=== PATIENT | male | born 1950 | race American Indian/Alaskan Native ===

== ENCOUNTER 2017-09-18 14:36 | Inpatient (IN) | payer OTHER ==
[2017-09-18] MEDS ORDERED: ATIVAN ONE (15:31)
[2017-09-18 16:03] LABS: Basophils # (Auto) 0.1 K/mm3 (0.0-0.1); Basophils % (Auto) 0.5 % (0.0-1.8); Eosinophils # (Auto) 0.1 K/mm3 (0.0-0.4); Hematocrit 33.9 % (35.5-45.6); Hemoglobin 10.9 gm/dl (11.8-15.2); Lymphocytes # (Auto) 1.3 K/mm3 (1.2-5.4); Lymphocytes % (Auto) 11.7 % (13.4-35.0); Mean Corpuscular HGB Conc 32 % (32-34); Mean Corpuscular Hemoglobin 29 pg (28-32); Mean Corpuscular Volume 91 fl (84-94); Monocytes % (Auto) 8.7 % (0.0-7.3); Platelet Count 459 K/mm3 (140-440); Red Blood Count 3.72 M/mm3 (3.65-5.03); Red Cell Distribution Width 13.3 % (13.2-15.2)
[2017-09-18 16:15] LABS: INR 1.05 (0.87-1.13); Partial Thromboplastin Time 21.2 Sec. (24.2-36.6)
[2017-09-18 16:21] LABS: Albumin 3.3 g/dL (3.9-5); Calcium 9.2 mg/dL (8.4-10.2)
--- NOTE | 2017-09-18 16:26 | Emergency Department Report ---
ED General Adult HPI - General Chief complaint: Seizure Stated complaint: LOW HEART RATE Time Seen by Provider: 09/18/17 15:41 Source: family, EMS Mode of arrival: Stretcher Limitations: Altered Mental Status, Physical Limitation - History of Present Illness Initial comments: 67-year-old male with past medical history of hypertension recent aortic valve replacement postop day #11 came in for bradycardia. Patient had low heart rate of 20s on the scene and patient was paced right away. Patient was brought in for bradycardia. The time of arrival patient was being paced. Patient denies any nausea vomiting chest pain shortness of breath. Patient is hypotensive at the time of arrival. Patient had low blood pressure and a right femoral line was placed right away. Patient was started on dopamine and Levophed. -: Sudden Severity scale (0 -10): 10 - Related Data Previous Rx's Medication Instructions Recorded Last Taken Type Famotidine [Pepcid] 20 mg PO DAILY #30 tablet 09/21/17 Unknown Rx Lisinopril [Zestril TAB] 2.5 mg PO QDAY #30 tablet 09/21/17 Unknown Rx Metoprolol Xl [Metoprolol 25 mg PO QDAY #30 tablet 09/21/17 Unknown Rx SUCCINATE ER TAB] oxyCODONE /ACETAMINOPHEN [Percocet 1 tab PO Q6H PRN #14 tablet 09/21/17 Unknown Rx 5/325 mg] Allergies Allergy/AdvReac Type Severity Reaction Status Date / Time No Known Allergies Allergy Unverified 09/18/17 16:32 ED Review of Systems ROS: Stated complaint: LOW HEART RATE Other details as noted in HPI Comment: Unobtainable due to pts medical conditions ED Past Medical Hx - Medications Home Medications: Home Medications Medication Instructions Recorded Confirmed Last Taken Type Famotidine [Pepcid] 20 mg PO DAILY #30 tablet 09/21/17 Unknown Rx Lisinopril [Zestril TAB] 2.5 mg PO QDAY #30 tablet 09/21/17 Unknown Rx Metoprolol Xl [Metoprolol 25 mg PO QDAY #30 tablet 09/21/17 Unknown Rx SUCCINATE ER TAB] oxyCODONE /ACETAMINOPHEN [Percocet 1 tab PO Q6H PRN #14 tablet 09/21/17 Unknown Rx 5/325 mg] ED Physical Exam - General Limitations: Altered Mental Status, Physical Limitation General appearance: alert - Head Head exam: Present: atraumatic - Eye Eye exam: Present: normal appearance Pupils: Present: normal accommodation - ENT ENT exam: Present: normal exam - Neck Neck exam: Present: normal inspection - Respiratory Respiratory exam: Present: normal lung sounds bilaterally - Cardiovascular Cardiovascular Exam: Present: regular rate - GI/Abdominal GI/Abdominal exam: Present: soft - Extremities Exam Extremities exam: Present: normal inspection - Back Exam Back exam: Present: normal inspection - Neurological Exam Neurological exam: Present: alert ED Course Vital Signs 09/18/17 09/18/17 09/18/17 15:00 15:15 15:30 Temperature 96.7 F L Pulse Rate 29 L Respiratory 20 20 19 Rate Blood Pressure Blood Pressure 90/40 80/45 74/40 [Right] O2 Sat by Pulse 100 100 Oximetry 09/18/17 09/18/17 09/18/17 15:58 16:00 16:15 Temperature Pulse Rate 29 L Respiratory Rate Blood Pressure 100/40 Blood Pressure 100/46 73/40 [Right] O2 Sat by Pulse 100 Oximetry 09/18/17 09/18/17 09/18/17 16:30 16:43 16:45 Temperature Pulse Rate 79 Respiratory 22 Rate Blood Pressure Blood Pressure 56/37 64/40 [Right] O2 Sat by Pulse 100 Oximetry 09/18/17 09/18/17 09/18/17 17:17 17:30 17:45 Temperature Pulse Rate 84 76 Respiratory 22 Rate Blood Pressure Blood Pressure 100/44 98/40 102/38 [Right] O2 Sat by Pulse 100 Oximetry 09/18/17 09/18/17 09/18/17 18:38 18:39 18:45 Temperature Pulse Rate 79 78 Respiratory Rate Blood Pressure Blood Pressure 92/46 106/50 [Right] O2 Sat by Pulse 97 Oximetry 09/18/17 09/18/17 09/18/17 18:50 19:00 19:11 Temperature Pulse Rate 70 70 70 Respiratory 13 15 15 Rate Blood Pressure 166/92 117/84 117/84 Blood Pressure [Right] O2 Sat by Pulse 100 100 100 Oximetry 67-year-old male was brought in for bradycardia. I called the hotel room attendant field contact person right away, patient was given an amp of atropine in the ER and patient was also started on dopamine drip. Dr. Werner is on his way. I discussed his family bedside the patient is very sick. Pt is also started on a levophed drip. I discussed the case with hospitalist and they're okay to admit the patient - Central Line Placement Right Femoral Consent Obtained: emergent situation Time Out Performed: Yes Patient Placed on Monitor/Pulse Ox: Yes Prep: mask, gown, gloves Central Line Prep: Chlorhexidine scrub, sterile drapes applied Local Anesthesia Used: Lidocaine 1% Ultrasound Used for Placement: Yes Central Line Lumen Inserted: triple Bloods Obtained for Lab: Yes Central Line Position: good blood return, all ports aspirated, flus, sutured in place with 2-0 Dressing Applied: Tegaderm Patient Tolerated Procedure: well Complications: none ED Medical Decision Making - Lab Data Result diagrams: 09/19/17 04:50 09/20/17 05:42 - Medical Decision Making 67-year-old male with recent aortic valve replacement came in with a bradycardia of 20s. Patient at the time of arrival was being paced. At time a central line was placed patient was started on pressors. Patient's blood pressure started to come up. Stat cardiology consult was called and the cath team was called and patient was taken for a temporary pacemaker placement. Pt was in a very critical condition. Discussed with family bedside the patient will be admitted to the ICU after THE DRY CHARGE PROCESS ATTENDANT. Critical care time in (mins) excluding proc time.: 45 Critical care attestation.: If time is entered above; I have spent that time in minutes in the direct care of this critically ill patient, excluding procedure time. ED Disposition Clinical Impression: AV block, 3rd degree, Heart block, Hyperkalemia, H/O aortic valve replacement Disposition: OP ADMIT IP TO THIS HOSP Is pt being admited?: Yes Does the pt Need Aspirin: No Condition: Critical
--- NOTE | 2017-09-18 16:31 | XRay Report ---
FINAL REPORT EXAM: XR CHEST 1V AP HISTORY: Chest Pain TECHNIQUE: AP frontal chest x-ray Comparison: None FINDINGS: There has been previous median sternotomy. Heart is enlarged. There is an aortic prosthetic valve. There is pulmonary vascular congestion. A defibrillator pad is present projecting over the right midlung laterally. Lung volumes are low with secondary bronchovascular crowding. There is no pneumothorax. IMPRESSION: Cardiomegaly. Previous median sternotomy. Aortic prosthetic valve. Mild pulmonary vascular congestion. Low volumes with crowding. Recommend larger volume follow-up two view chest when able.
[2017-09-18] MEDS ORDERED: HumuLIN R IV ONE (16:49)
[2017-09-18] MEDS ORDERED: D50W (25GM) Syringe IV ONE (16:50)
[2017-09-18 16:53] LABS: VBG PO2 35.1 (25.0-47.0); VEN PH 7.242 (7.320-7.420)
[2017-09-18] MEDS ORDERED: SODIUM BICARBONATE IV ONE (16:55)
[2017-09-18] MEDS ORDERED: LEVOPHED DRIP 4 MG/NS 250 ML 4 MG/250 ML BAG IV SCH ×2 (17:00)
[2017-09-18] MEDS ORDERED: CALCIUM GLUCONATE 1,000 MG in NACL 0.9% 100 ML IV ONE (17:00)
[2017-09-18] MEDS ORDERED: SODIUM BICARBONATE 150 MEQ in D5W 1,000 ML IV ONE (17:00)
[2017-09-18] MEDS ORDERED: ATIVAN IV ONE (17:00)
[2017-09-18 17:01] LABS: Chol/HDL Ratio 4.03 %
[2017-09-18] MEDS ORDERED: INTROPIN DRIP 800 MG/D5W 250 ML 800 MG/250 ML BAG IV ONE (17:05)
[2017-09-18] MEDS ORDERED: XYLOCAINE 2% INFILTRATI ONE (17:24)
[2017-09-18] MEDS ORDERED: NACL 0.9% 500 ML 500 ML ONE (17:30)
[2017-09-18] MEDS ORDERED: HEPARIN 10,000 UNITS/10 ML ONE (17:30)
[2017-09-18] MEDS ORDERED: ATROPINE 0.1% (CARDIAC) ONE (17:30)
[2017-09-18] MEDS ORDERED: VERSED ONE (17:31)
[2017-09-18] MEDS ORDERED: SUBLIMAZE ONE (17:31)
--- NOTE | 2017-09-18 17:50 | Consultation ---
History of Present Illness Consult date: 09/18/17 Consult reason: bradycardia, syncope History of present illness: The patient states 67-year-old man who was brought to the emergency room following a syncopal episode at home. He was found with severe bradycardia and was placed on an external pacemaker. On presentation to the emergency room, he was also severely hypotensive, and bradycardia hypotension persisted despite atropine. Intravenous dopamine was started and cardiac consultation was requested for emergency temporary transvenous pacemaker. Stat laboratory values revealed a potassium of 6.1 and a creatinine of 3.2. Medications on presentation included amiodarone and carvedilol. The patient's recent cardiac history, is notable for aortic valve replacement with a bioprosthetic valve just 3 weeks ago at [facility]. He denies a history of coronary artery disease and states that there was no coronary artery bypass. The indication for his valve replacement is uncertain, he reports that he was getting tired but uncertain if he was a valvular stenosis or regurgitation. We also have no information on his presurgical left ventricular ejection fraction. The patient was taken emergently to the cardiac catheterization laboratory, where we successfully placed a temporary transvenous pacemaker via the left femoral vein. He is admitted to the CCU for further supportive care. Past History Past Surgical History: valve replacement Medications and Allergies Allergies Allergy/AdvReac Type Severity Reaction Status Date / Time No Known Allergies Allergy Unverified 09/18/17 16:32 Active Meds: Active Medications Norepinephrine (Levophed Drip 4 Mg/Ns 250 Ml) 4 mg in 250 mls @ 7.5 mls/hr IV TITR EDA; Protocol Sodium Bicarbonate 150 meq/ (Dextrose) 1,150 mls @ 42 mls/hr IV ONCE.ED ONE Stop: 09/19/17 20:22 Dopamine HCl/Dextrose (Intropin Drip 800 Mg/D5w 250 Ml) 800 mg in 250 mls @ 9.355 mls/hr IV TITR ONE; Protocol Stop: 09/19/17 19:48 Review of Systems ROS unobtainable: due to mental status Physical Examination Vital Signs Pulse BP Pulse Ox 29 L 100/40 100 09/18/17 15:58 09/18/17 15:58 09/18/17 15:58 General appearance: severe distress HEENT: Positive: PERRL Neck: Positive: neck supple Cardiac: Positive: Irregularly Regular Lungs: Positive: Decreased Breath Sounds Neuro: Positive: Grossly Intact Abdomen: Positive: Soft Male genitourinary: Positive: deferred Skin: Positive: Clear Extremities: Absent: edema Results 09/18/17 16:00 09/18/17 16:00 Cardiac Enzymes 09/18/17 Range/Units 16:00 AST 13 (5-40) units/L Coagulation 09/18/17 Range/Units 16:00 PT 14.2 (12.2-14.9) Sec. INR 1.05 (0.87-1.13) APTT 21.2 L (24.2-36.6) Sec. Lipids 09/18/17 Range/Units 16:00 Triglycerides 130 (2-149) mg/dL Cholesterol 105 (50-199) mg/dL HDL Cholesterol 26 L (40-59) mg/dL Cholesterol/HDL Ratio 4.03 % CBC 09/18/17 Range/Units 16:00 WBC 11.2 H (4.5-11.0) K/mm3 RBC 3.72 (3.65-5.03) M/mm3 Hgb 10.9 L (11.8-15.2) gm/dl Hct 33.9 L (35.5-45.6) % Plt Count 459 H (140-440) K/mm3 Lymph # 1.3 (1.2-5.4) K/mm3 [place] # 1.0 H (0.0-0.8) K/mm3 Eos # 0.1 (0.0-0.4) K/mm3 Baso # 0.1 (0.0-0.1) K/mm3 Comprehensive Metabolic Panel 09/18/17 Range/Units 16:00 Sodium 133 L (137-145) mmol/L Potassium 6.1 H* (3.6-5.0) mmol/L Chloride 99.6 (98-107) mmol/L Carbon Dioxide 20 L (22-30) mmol/L BUN 47 H (9-20) mg/dL Creatinine 3.2 H (0.8-1.5) mg/dL Glucose 155 H (75-100) mg/dL Calcium 9.2 (8.4-10.2) mg/dL AST 13 (5-40) units/L ALT 21 (7-56) units/L Alkaline Phosphatase 70 (35-129) units/L Total Protein 6.9 (6.3-8.2) g/dL Albumin 3.3 L (3.9-5) g/dL EKG interpretations - Telemetry EKG Rhythm: 3rd Degree HB Assessment and Plan - Patient Problems (1) Heart block Current Visit: Yes Status: Acute Plan to address problem: Patient presented with syncope and complete heart block. It is notable that position of external pacemaker, there was complete asystole, with P waves and no QRS complexes. The patient is status post successful placement of a temporary transvenous pacemaker. The etiology of the heart block is uncertain at this time, possible etiologies include hyperkalemia versus iatrogenic damage to the His bundle during his recent valvular surgery. After correction of his hyperkalemia, if heart block persists he will likely need a permanent pacemaker implant. (2) Hyperkalemia Current Visit: Yes Status: Acute Plan to address problem: Hyperkalemia associated with renal failure, we will defer to nephrology and internal medicine for management of renal failure and correction of hyperkalemia. (3) H/O aortic valve replacement Current Visit: Yes Status: Acute Plan to address problem: We will get records from the [facility], regarding the indication for valvular replacement, his preoperative left ventricular function assessment. Further cardiac management will depend on clinical course. An echocardiogram will be done for left ventricular function reassessment.
[2017-09-18] MEDS ORDERED: HEPARIN/NS 5000 UNIT/500ML(CATH LAB) 500 ML IR ONE (17:57)
[2017-09-18] MEDS ORDERED: REGLAN IV PRN (18:26)
[2017-09-18] MEDS ORDERED: SODIUM CHLORIDE FLUSH SYRINGE 10 ML IV PRN ×2 (18:26)
[2017-09-18] MEDS ORDERED: DILAUDID IV PRN ×2 (18:26)
[2017-09-18] MEDS ORDERED: TYLENOL PO PRN (18:26)
[2017-09-18] MEDS ORDERED: ZOFRAN IV PRN (18:26)
[2017-09-18] MEDS ORDERED: MORPHINE IV PRN (18:26)
[2017-09-18] MEDS ORDERED: PERCOCET 5/325 PO PRN (18:26)
--- NOTE | 2017-09-18 18:26 | History and Physical Report ---
History of Present Illness Date of examination: 09/18/17 Date of admission: 09/18/17 16:27 Chief complaint: Chief complaint: The patient has passed out at home after feeling very weak. History of present illness: History of present illness: : 67-year-old AA male felt very weak and passed out at home. When the EMS arrived they found the patient to be in a heart rate of 20/m. Patient was placed on temporary transvenous pacemaker. After wearing the external pacemaker HR went upto 80. No chest pain no palpitations or diaphoresis. Patient recently had a Aortic valve replacement about 3 weeks ago at [facility]. Patient was also hypotensive. No history of coronary artery disease. No diaphoresis. Patient is a high potassium of 6.1 and creatinine of 3.2. Baseline mammogram potassium and creatinine not known. Past History Past Surgical History: valve replacement Surgical history Aortic valve replacement Family history htn Social History Smoking status not known Medications and Allergies Allergies Allergy/AdvReac Type Severity Reaction Status Date / Time No Known Allergies Allergy Unverified 09/18/17 16:32 Active Meds: Active Medications Norepinephrine (Levophed Drip 4 Mg/Ns 250 Ml) 4 mg in 250 mls @ 7.5 mls/hr IV TITR EDA; Protocol Sodium Bicarbonate 150 meq/ (Dextrose) 1,150 mls @ 42 mls/hr IV ONCE.ED ONE Stop: 09/19/17 20:22 Dopamine HCl/Dextrose (Intropin Drip 800 Mg/D5w 250 Ml) 800 mg in 250 mls @ 9.355 mls/hr IV TITR ONE; Protocol Stop: 09/19/17 19:48 Review of Systems All systems: negative Constitutional: no weight loss, no weight gain, no fever, no chills, no sweats, no night sweats Ears, nose, mouth and throat: no dysphagia, no hoarseness, no sore throat, no swelling in mouth, no swelling in throat, no odynophagia Cardiovascular: chest pain, syncope, shortness of breath Respiratory: no cough, no cough with sputum, no excessive sputum, no hemoptysis , no shortness of breath, no dyspnea on exertion Gastrointestinal: no abdominal pain, no nausea, no vomiting, no diarrhea, no constipation, no change in bowel habits, no hematemesis, no coffee ground emesis Genitourinary Male: no dysuria, no hematuria, no flank pain, no discharge, no urinary frequency, no urinary hesitancy, no nocturia, no incontinence, no erectile dysfunction, no genital pain Rectal: no pain Musculoskeletal: no neck stiffness, no neck pain, no shooting arm pain, no arm numbness/tingling, no low back pain, no shooting leg pain, no leg numbness/ tingling, no redness of joints Integumentary: no rash, no pruritis, no redness, no sores Neurological: syncope, no head injury, no transient paralysis, no paralysis, no weakness, no parathesias, no numbness, no tingling, no seizures Psychiatric: no anxiety, no memory loss, no change in sleep habits, no sleep disturbances, no insomnia, no hypersomnia, no change in appetite, no change in libido, no suicidal ideation, no disorientation, no hallucinations Endocrine: no cold intolerance, no heat intolerance, no polyphagia, no excessive thirst, no polydipsia, no polyuria, no nocturia, no excessive sweating , no flushing, no weight change Hematologic/Lymphatic: no easy bruising, no easy bleeding Allergic/Immunologic: no urticaria, no allergic rhinitis, no wheezing Exam - Constitutional Vitals: Temp Pulse Resp BP Pulse Ox 29 L 22 100/40 100 09/18/17 15:58 09/18/17 16:43 09/18/17 15:58 09/18/17 16:43 General appearance: Present: no acute distress, well-nourished - EENT Eyes: Present: PERRL ENT: hearing intact, clear oral mucosa - Neck Neck: Present: supple, normal ROM - Respiratory Respiratory effort: normal Respiratory: bilateral: CTA - Cardiovascular Heart rate: 78 Rhythm: regular Heart Sounds: Present: S1 & S2. Absent: rub, click - Extremities Extremities: no ischemia, pulses intact, pulses symmetrical, No edema Peripheral Pulses: within normal limits - Abdominal General gastrointestinal: Present: soft, non-tender, non-distended, normal bowel sounds Male genitourinary: Present: normal - Rectal Rectal Exam: deferred - Integumentary Integumentary: Present: clear, warm, dry - Musculoskeletal Musculoskeletal: gait normal, strength equal bilaterally - Psychiatric Psychiatric: appropriate mood/affect, intact judgment & insight - Neurologic Neurologic: CNII-XII intact, moves all extremities - Allied Health Allied health notes reviewed: nursing, case management Results - Labs CBC & Chem 7: 09/18/17 16:00 09/18/17 16:00 Labs: Laboratory Last Values WBC 11.2 K/mm3 (4.5-11.0) H 09/18/17 16:00 RBC 3.72 M/mm3 (3.65-5.03) 09/18/17 16:00 Hgb 10.9 gm/dl (11.8-15.2) L 09/18/17 16:00 Hct 33.9 % (35.5-45.6) L 09/18/17 16:00 MCV 91 fl (84-94) 09/18/17 16:00 MCH 29 pg (28-32) 09/18/17 16:00 MCHC 32 % (32-34) 09/18/17 16:00 RDW 13.3 % (13.2-15.2) 09/18/17 16:00 Plt Count 459 K/mm3 (140-440) H 09/18/17 16:00 Lymph % (Auto) 11.7 % (13.4-35.0) L 09/18/17 16:00 Bartholomew % (Auto) 8.7 % (0.0-7.3) H 09/18/17 16:00 Eos % (Auto) 1.0 % (0.0-4.3) 09/18/17 16:00 Baso % (Auto) 0.5 % (0.0-1.8) 09/18/17 16:00 Lymph # 1.3 K/mm3 (1.2-5.4) 09/18/17 16:00 Bartholomew # 1.0 K/mm3 (0.0-0.8) H 09/18/17 16:00 Eos # 0.1 K/mm3 (0.0-0.4) 09/18/17 16:00 Baso # 0.1 K/mm3 (0.0-0.1) 09/18/17 16:00 Seg Neutrophils % 78.1 % (40.0-70.0) H 09/18/17 16:00 Seg Neutrophils # 8.7 K/mm3 (1.8-7.7) H 09/18/17 16:00 PT 14.2 Sec. (12.2-14.9) 09/18/17 16:00 INR 1.05 (0.87-1.13) 09/18/17 16:00 APTT 21.2 Sec. (24.2-36.6) L 09/18/17 16:00 POC ABG pH 7.335 (7.35-7.45) L 09/18/17 16:53 POC ABG pCO2 34.5 (35-45) L 09/18/17 16:53 POC ABG pO2 294 (80-105) H 09/18/17 16:53 POC ABG HCO3 18.4 09/18/17 16:53 POC ABG Total CO2 19 09/18/17 16:53 POC ABG O2 Sat 100 09/18/17 16:53 POC ABG Base Excess -7 09/18/17 16:53 VBG pH 7.242 (7.320-7.420) L 09/18/17 Unknown VBG pO2 35.1 (25.0-47.0) 09/18/17 Unknown FiO2 100 % 09/18/17 16:53 Sodium 133 mmol/L (137-145) L 09/18/17 16:00 Potassium 6.1 mmol/L (3.6-5.0) H* 09/18/17 16:00 Chloride 99.6 mmol/L (98-107) 09/18/17 16:00 Carbon Dioxide 20 mmol/L (22-30) L 09/18/17 16:00 Anion Gap 20 mmol/L 09/18/17 16:00 BUN 47 mg/dL (9-20) H 09/18/17 16:00 Creatinine 3.2 mg/dL (0.8-1.5) H 09/18/17 16:00 Estimated GFR 24 ml/min 09/18/17 16:00 BUN/Creatinine Ratio 15 % 09/18/17 16:00 Glucose 155 mg/dL (75-100) H 09/18/17 16:00 Lactic Acid 1.40 mmol/L (0.7-2.0) 09/18/17 17:12 Calcium 9.2 mg/dL (8.4-10.2) 09/18/17 16:00 Total Bilirubin 0.50 mg/dL (0.1-1.2) 09/18/17 16:00 AST 13 units/L (5-40) 09/18/17 16:00 ALT 21 units/L (7-56) 09/18/17 16:00 Alkaline Phosphatase 70 units/L (35-129) 09/18/17 16:00 Troponin T 0.104 ng/mL (0.00-0.029) H* 09/18/17 16:00 Total Protein 6.9 g/dL (6.3-8.2) 09/18/17 16:00 Albumin 3.3 g/dL (3.9-5) L 09/18/17 16:00 Albumin/Globulin Ratio 0.9 % 09/18/17 16:00 Triglycerides 130 mg/dL (2-149) 09/18/17 16:00 Cholesterol 105 mg/dL (50-199) 09/18/17 16:00 LDL Cholesterol Direct 60 mg/dL (50-130) 09/18/17 16:00 HDL Cholesterol 26 mg/dL (40-59) L 09/18/17 16:00 Cholesterol/HDL Ratio 4.03 % 09/18/17 16:00 - Imaging and Cardiology EKG: report reviewed (initial EKG complete heart block with heart rate of 20/m) Assessment and Plan Assessment and plan: The high probability of a clinically significant, sudden or life threatening deterioration of the [Pulmonary, cadiac, renal] system(s) required my full and direct attention, intervention and personal management. The aggregate critical care time was [40] minutes. This time is in addition to time spent performing reported procedures but includes the following: [x] Data Review and interpretation [x] Patient assessment and monitoring of vital signs [x] Documentation [x] Medication orders and management Advance Directives: Yes (full code) VTE prophylaxis?: Chemical Plan of care discussed with patient/family: Yes (") - Patient Problems (1) Hypotension Current Visit: Yes Status: Acute Qualifiers: Hypotension type: unspecified hypotension type Qualified Code(s): I95.9 - Hypotension, unspecified Plan to address problem: IV Levophed titrated to keep the systolic blood pressure above 100 mm Hg (2) Complete heart block Current Visit: Yes Status: Acute Plan to address problem: Patient is on transcutaneous pacemaker. Heart rate went up to 78. Patient being taken to the Strategic Development Manager for cardiac cath and possible pacemaker insertion. EPS consult requested (3) Hyperkalemia Current Visit: Yes Status: Acute Plan to address problem: Patient given anti-hyper kalemia protocol Recheck BMP (4) Acute kidney injury Current Visit: Yes Status: Acute Plan to address problem: Patient's baseline creatinine not known. IV fluids for now. Dr. Sage baseball club manager consulted (5) H/O aortic valve replacement Current Visit: Yes Status: Chronic Plan to address problem: Had aortic valve replacement 3 weeks ago Echocardiogram ordered Cardiology consult ordered (6) DVT prophylaxis Current Visit: Yes Status: Acute Plan to address problem: Patient on Lovenox 40 mg subcutaneous daily GI prophylaxis with famotidine
[2017-09-18 18:35] LABS: Bacteria,Urine 1+ /HPF (Negative); Bilirubin,Urine NEG (Negative); Blood,Urine SM (Negative); Color,Urine Yellow (Yellow); Granular Casts,Urine 6 /LPF; Hyaline Casts,Urine 6 /LPF; Urobilinogen,Urine < 2.0 mg/dL (<2.0)
[2017-09-18] MEDS ORDERED: D5NS 1,000 ML IV SCH (19:00)
[2017-09-18 20:25] LABS: Calcium 8.8 mg/dL (8.4-10.2)
[2017-09-18] MEDS: PEPCID IV SCH (21:38)
[2017-09-18] MEDS ORDERED: SODIUM CHLORIDE FLUSH SYRINGE 10 ML IV SCH (22:00)
[2017-09-18] MEDS ORDERED: PEPCID IV SCH (22:00)
--- NOTE | 2017-09-18 22:32 | Event Note ---
Discussed with emergency room physician. Patient admitted with bradycardia, hyperkalemia, for which she has already received treatment. At this time would like to review the results of follow-up, metabolic profile and potassium level to make further recommendation. I suspect underlying cardiac conduction defect , cardiology already following Case was discussed at length with JENNY Santamaria
--- NOTE | 2017-09-18 22:32 | Consultation ---
Past History Past Surgical History: valve replacement Medications and Allergies Allergies Allergy/AdvReac Type Severity Reaction Status Date / Time No Known Allergies Allergy Unverified 09/18/17 16:32 Active Meds: Active Medications Acetaminophen (Tylenol) 650 mg PO Q4H PRN PRN Reason: Pain MILD(1-3)/Fever >100.5/GUERRA Famotidine (Pepcid) 20 mg IV QDAY EDA Last Admin: 09/18/17 21:38 Dose: 20 mg Hydromorphone HCl (Dilaudid) 1 mg IV Q3H PRN PRN Reason: Pain , Severe (7-10) Sodium Bicarbonate 150 meq/ (Dextrose) 1,150 mls @ 42 mls/hr IV ONCE.ED ONE Stop: 09/19/17 20:22 Last Admin: 09/18/17 17:20 Dose: 42 mls/hr Dextrose/Sodium Chloride (D5ns) 1,000 mls @ 100 mls/hr IV DIRECT EDA Metoclopramide HCl (Reglan) 10 mg IV Q6H PRN PRN Reason: Nausea And Vomiting Morphine Sulfate (Morphine) 2 mg IV Q4H PRN PRN Reason: Pain, Moderate (4-6) Ondansetron HCl (Zofran) 4 mg IV Q8H PRN PRN Reason: Nausea And Vomiting Oxycodone/Acetaminophen (Percocet 5/325) 1 tab PO Q6H PRN PRN Reason: Pain, Moderate (4-6) Sodium Chloride (Sodium Chloride Flush Syringe 10 Ml) 10 ml IV BID EDA Sodium Chloride (Sodium Chloride Flush Syringe 10 Ml) 10 ml IV PRN PRN PRN Reason: LINE FLUSH Zolpidem Tartrate (Ambien) 5 mg PO QHS PRN PRN Reason: Insomnia Exam - Vital Signs Vital signs: Vital Signs Temp Pulse Resp BP Pulse Ox 96.7 F L 29 L 20 90/40 100 09/18/17 15:00 09/18/17 15:00 09/18/17 15:00 09/18/17 15:00 09/18/17 15:00 Results - Lab Results 09/18/17 16:00 09/18/17 19:50 Most recent lab results Calcium 8.8 mg/dL (8.4-10.2) 09/18/17 19:50
[2017-09-18 23:39] LABS: Bacteria,Urine 1+ /HPF (Negative); Bilirubin,Urine NEG (Negative); Blood,Urine SM (Negative); Color,Urine Yellow (Yellow); Mucus,Urine FEW /HPF; Protein,Urine <15 mg/dL mg/dL (Negative); RBC,Urine < 1.0 /HPF (0.0-6.0); Urobilinogen,Urine < 2.0 mg/dL (<2.0)
[2017-09-18 23:41] LABS: Creatinine,Urine 79.9 mg/dL (0.1-20.0)
[2017-09-19 05:02] LABS: Basophils # (Auto) 0.1 K/mm3 (0.0-0.1); Basophils % (Auto) 0.5 % (0.0-1.8); Eosinophils # (Auto) 0.1 K/mm3 (0.0-0.4); Eosinophils % (Auto) 0.4 % (0.0-4.3); Hematocrit 31.2 % (35.5-45.6); Hemoglobin 10.6 gm/dl (11.8-15.2); Lymphocytes # (Auto) 1.6 K/mm3 (1.2-5.4); Mean Corpuscular HGB Conc 34 % (32-34); Mean Corpuscular Hemoglobin 30 pg (28-32); Mean Corpuscular Volume 88 fl (84-94); Monocytes # (Auto) 1.5 K/mm3 (0.0-0.8); Monocytes % (Auto) 11.1 % (0.0-7.3); Red Blood Count 3.56 M/mm3 (3.65-5.03); Red Cell Distribution Width 13.1 % (13.2-15.2)
[2017-09-19 05:03] LABS: Platelet Count 422 K/mm3 (140-440)
[2017-09-19 05:20] LABS: Albumin 3.2 g/dL (3.9-5); Calcium 8.9 mg/dL (8.4-10.2)
[2017-09-19] MEDS: PEPCID IV SCH (08:59)
[2017-09-19] MEDS: SODIUM CHLORIDE FLUSH SYRINGE 10 ML IV SCH ×3 (08:59→23:36)
--- NOTE | 2017-09-19 09:33 | Consultation ---
History of Present Illness - History of Present Illness Chronic kidney disease: Patient has been followed by [facility] has been told to have stage III Hyperkalemia, mild, treated medically. Currently responded well. No indication for renal replacement therapy. Continue to maintain IV fluid for now. Monitor potassium level Mild anemia, possibly due to chronic kidney disease. Current hemoglobin around 10.6 Mild leukocytosis: Likely stress response to follow Hyponatremia, multifactorial,? Underlying type IV renal tubular acidosis, which could have caused metabolic acidosis as well as hyperkalemia, patient will be treated with bicarbonate for now an outpatient. Low potassium diet Transjugular potassium gradient is to be checked Urinalysis shows evidence of glycosuria, protein creatinine ratio 15/80 Renal prognosis guarded, Past History Past Surgical History: valve replacement Medications and Allergies Allergies Allergy/AdvReac Type Severity Reaction Status Date / Time No Known Allergies Allergy Unverified 09/18/17 16:32 Active Meds: Active Medications Acetaminophen (Tylenol) 650 mg PO Q4H PRN PRN Reason: Pain MILD(1-3)/Fever >100.5/GUERRA Famotidine (Pepcid) 20 mg IV QDAY [facility] Last Admin: 09/19/17 08:59 Dose: 20 mg Hydromorphone HCl (Dilaudid) 1 mg IV Q3H PRN PRN Reason: Pain , Severe (7-10) Last Admin: 09/19/17 05:00 Dose: 1 mg Sodium Bicarbonate 150 meq/ (Dextrose) 1,150 mls @ 42 mls/hr IV ONCE.ED ONE Stop: 09/19/17 20:22 Last Admin: 09/18/17 17:20 Dose: 42 mls/hr Dextrose/Sodium Chloride (D5ns) 1,000 mls @ 100 mls/hr IV DIRECT [facility] Metoclopramide HCl (Reglan) 10 mg IV Q6H PRN PRN Reason: Nausea And Vomiting Morphine Sulfate (Morphine) 2 mg IV Q4H PRN PRN Reason: Pain, Moderate (4-6) Ondansetron HCl (Zofran) 4 mg IV Q8H PRN PRN Reason: Nausea And Vomiting Oxycodone/Acetaminophen (Percocet 5/325) 1 tab PO Q6H PRN PRN Reason: Pain, Moderate (4-6) Sodium Chloride (Sodium Chloride Flush Syringe 10 Ml) 10 ml IV BID [facility] Last Admin: 09/19/17 08:59 Dose: 10 ml Sodium Chloride (Sodium Chloride Flush Syringe 10 Ml) 10 ml IV PRN PRN PRN Reason: LINE FLUSH Zolpidem Tartrate (Ambien) 5 mg PO QHS PRN PRN Reason: Insomnia Exam - Vital Signs Vital signs: Vital Signs Temp Pulse Resp BP Pulse Ox 96.7 F L 29 L 20 90/40 100 09/18/17 15:00 09/18/17 15:00 09/18/17 15:00 09/18/17 15:00 09/18/17 15:00 Results - Lab Results 09/19/17 04:50 09/19/17 04:50 Most recent lab results Calcium 8.9 mg/dL (8.4-10.2) 09/19/17 04:50 Urine Creatinine 79.9 mg/dL (0.1-20.0) H 09/18/17 Unknown Urine Total Protein 15 mg/dL (5-11.8) H 09/18/17 Unknown
--- NOTE | 2017-09-19 09:48 | Cat Scan Report ---
CT HEAD WITHOUT CONTRAST: HISTORY: Seizure. TECHNIQUE: Sequential 2.5mm CT images. COMPARISON: none. FINDINGS: Cerebral Parenchyma: Within normal limits. Cerebellum: Within normal limits. Brainstem: Within normal limits. Ventricles: Normal. Sella: Normal. Extra-axial spaces: Normal. Basal Cisterns: Normal. Intracranial Hemorrhage: None. Midline Shift: None. Calvarium: Normal. Sinuses: Normal. Mastoid Air Cells: Normal. Visualized Orbits: Normal. IMPRESSION: Cranial CT scan within normal limits.
--- NOTE | 2017-09-19 11:26 | Consultation ---
History of Present Illness Consult date: 09/19/17 Requesting physician: PAULETTE GARIBAY Reason for consult: other (syncope) History of present illness: 67 yo s/p recent AVR ~ 2-3 weeks ago, was doing well post-op until prior to this presentation when he had a syncopal episode. Noted to be in CHB and trans- venous pacer inserted. Denies SOB, wheezing, cough, sputum, fevers, chills, chest pain. Currently on RA. Active Medications Acetaminophen (Tylenol) 650 mg PO Q4H PRN PRN Reason: Pain MILD(1-3)/Fever >100.5/GUERRA Famotidine (Pepcid) 20 mg IV QDAY [facility] Last Admin: 09/19/17 08:59 Dose: 20 mg Heparin Sodium (Porcine) (Heparin) 5,000 unit SUB-Q Q8HR EDA Hydromorphone HCl (Dilaudid) 1 mg IV Q3H PRN PRN Reason: Pain , Severe (7-10) Last Admin: 09/19/17 05:00 Dose: 1 mg Dextrose/Sodium Chloride (D5ns) 1,000 mls @ 100 mls/hr IV DIRECT EDA Metoclopramide HCl (Reglan) 10 mg IV Q6H PRN PRN Reason: Nausea And Vomiting Morphine Sulfate (Morphine) 2 mg IV Q4H PRN PRN Reason: Pain, Moderate (4-6) Ondansetron HCl (Zofran) 4 mg IV Q8H PRN PRN Reason: Nausea And Vomiting Oxycodone/Acetaminophen (Percocet 5/325) 1 tab PO Q6H PRN PRN Reason: Pain, Moderate (4-6) Sodium Chloride (Sodium Chloride Flush Syringe 10 Ml) 10 ml IV BID [facility] Last Admin: 09/19/17 08:59 Dose: 10 ml Sodium Chloride (Sodium Chloride Flush Syringe 10 Ml) 10 ml IV PRN PRN PRN Reason: LINE FLUSH Zolpidem Tartrate (Ambien) 5 mg PO QHS PRN PRN Reason: Insomnia Past History Past Medical History: other (Aortic regurgm, CMP) Past Surgical History: valve replacement Social history: alcohol abuse (~ 2 shots of liquor daily), full code. denies: smoking, prescription drug abuse, IV drug use Family history: other (No pulm issues reported) Medications and Allergies Allergies Allergy/AdvReac Type Severity Reaction Status Date / Time No Known Allergies Allergy Unverified 09/18/17 16:32 Active Meds: Active Medications Acetaminophen (Tylenol) 650 mg PO Q4H PRN PRN Reason: Pain MILD(1-3)/Fever >100.5/GUERRA Famotidine (Pepcid) 20 mg IV QDAY [facility] Last Admin: 09/19/17 08:59 Dose: 20 mg Heparin Sodium (Porcine) (Heparin) 5,000 unit SUB-Q Q8HR [facility] Hydromorphone HCl (Dilaudid) 1 mg IV Q3H PRN PRN Reason: Pain , Severe (7-10) Last Admin: 09/19/17 05:00 Dose: 1 mg Dextrose/Sodium Chloride (D5ns) 1,000 mls @ 100 mls/hr IV DIRECT EDA Metoclopramide HCl (Reglan) 10 mg IV Q6H PRN PRN Reason: Nausea And Vomiting Morphine Sulfate (Morphine) 2 mg IV Q4H PRN PRN Reason: Pain, Moderate (4-6) Ondansetron HCl (Zofran) 4 mg IV Q8H PRN PRN Reason: Nausea And Vomiting Oxycodone/Acetaminophen (Percocet 5/325) 1 tab PO Q6H PRN PRN Reason: Pain, Moderate (4-6) Sodium Chloride (Sodium Chloride Flush Syringe 10 Ml) 10 ml IV BID [facility] Last Admin: 09/19/17 08:59 Dose: 10 ml Sodium Chloride (Sodium Chloride Flush Syringe 10 Ml) 10 ml IV PRN PRN PRN Reason: LINE FLUSH Zolpidem Tartrate (Ambien) 5 mg PO QHS PRN PRN Reason: Insomnia Review of Systems All systems: negative Physical Examination Vital signs: Vital Signs Temp Pulse Resp BP Pulse Ox 96.7 F L 29 L 20 90/40 100 09/18/17 15:00 09/18/17 15:00 09/18/17 15:00 09/18/17 15:00 09/18/17 15:00 General appearance: no acute distress, alert, other (obese) Eyes: non-icteric ENT: oropharynx moist Neck: supple Effort: normal Ascultation: Bilateral: clear Cardiovascular: regular rate and rhythm (no mrg) Gastrointestinal: normoactive bowel sounds, soft, non-tender, non-distended Integumentary: normal Extremities: no cyanosis, no edema, pink and warm normal mental status, non-focal exam, pupils equal and round mood appropriate, affect normal Results - Laboratory Findings CBC and BMP: 09/19/17 04:50 09/19/17 04:50 ABG POC ABG pH 7.335 (7.35-7.45) L 09/18/17 16:53 POC ABG pCO2 34.5 (35-45) L 09/18/17 16:53 POC ABG pO2 294 (80-105) H 09/18/17 16:53 POC ABG HCO3 18.4 09/18/17 16:53 POC ABG Total CO2 19 09/18/17 16:53 POC ABG O2 Sat 100 09/18/17 16:53 PT/INR, D-dimer PT 14.2 Sec. (12.2-14.9) 09/18/17 16:00 INR 1.05 (0.87-1.13) 09/18/17 16:00 Abnormal lab findings: Abnormal Labs 09/18/17 09/18/17 09/18/17 16:00 16:00 16:00 WBC 11.2 H RBC Hgb 10.9 L Hct 33.9 L RDW Plt Count 459 H Lymph % (Auto) 11.7 L [place] % (Auto) 8.7 H [place] # 1.0 H Seg Neutrophils % 78.1 H Seg Neutrophils # 8.7 H APTT 21.2 L POC ABG pH POC ABG pCO2 POC ABG pO2 VBG pH Sodium 133 L Potassium 6.1 H* Chloride Carbon Dioxide 20 L BUN 47 H Creatinine 3.2 H Glucose 155 H Lactic Acid Troponin T 0.104 H* Albumin 3.3 L HDL Cholesterol 26 L Urine Creatinine Urine Total Protein 09/18/17 09/18/17 09/18/17 16:00 16:53 19:50 WBC RBC Hgb Hct RDW Plt Count Lymph % (Auto) [place] % (Auto) [place] # Seg Neutrophils % Seg Neutrophils # APTT POC ABG pH 7.335 L POC ABG pCO2 34.5 L POC ABG pO2 294 H VBG pH Sodium 129 L Potassium Chloride 97.1 L Carbon Dioxide 20 L BUN 46 H Creatinine 2.8 H Glucose 193 H Lactic Acid 2.40 H* Troponin T Albumin HDL Cholesterol Urine Creatinine Urine Total Protein 09/18/17 09/18/17 09/18/17 19:54 Unknown Unknown WBC RBC Hgb Hct RDW Plt Count Lymph % (Auto) [place] % (Auto) [place] # Seg Neutrophils % Seg Neutrophils # APTT POC ABG pH POC ABG pCO2 POC ABG pO2 VBG pH 7.242 L Sodium Potassium Chloride Carbon Dioxide BUN Creatinine Glucose Lactic Acid Troponin T 0.101 H* Albumin HDL Cholesterol Urine Creatinine 79.9 H Urine Total Protein 15 H 09/19/17 09/19/17 09/19/17 04:50 04:50 04:50 WBC 13.6 H RBC 3.56 L Hgb 10.6 L Hct 31.2 L RDW 13.1 L Plt Count Lymph % (Auto) 12.0 L [place] % (Auto) 11.1 H [place] # 1.5 H Seg Neutrophils % 76.0 H Seg Neutrophils # 10.3 H APTT POC ABG pH POC ABG pCO2 POC ABG pO2 VBG pH Sodium 131 L Potassium Chloride 97.0 L Carbon Dioxide BUN 40 H Creatinine 2.0 H Glucose 118 H Lactic Acid Troponin T 0.076 H D Albumin 3.2 L HDL Cholesterol Urine Creatinine Urine Total Protein - Diagnostic Findings Chest x-ray: report reviewed, image reviewed Assessment and Plan Imp: 1. Syncope 2. Complete heart block 3. AR s/p recent open AVR with pericardial tissue valve 4. IFTIKHAR on CKD, baseline of 1.3 in [place] system 5. Dilated CMP, worse; intra-op GORDO showed LVEF of 45-50% 08/2017 Rec: 1. On Dopamine 1mcg; wean to keep MAP > 65; plan PPM in AM 2. Note drop in LVEF per above; f/u with cards recs 3. Add DVT PPx 4. Stable pulm-haynes on RA; will monitor w/ you Plan of care reviewed w/ patient, he understands/agrees Thanks for the consult. Will follow closely.
--- NOTE | 2017-09-19 11:38 | Progress Note ---
Assessment and Plan Complete heart block status post right femoral temporary transvenous pacemaker. Hyperkalemia -corrected Hyponatremia Acute renal failure H/O aortic valve replacement We will get records from the [facility], regarding the indication for valvular replacement, his preoperative left ventricular function assessment. Echocardiogram will be done for left ventricular function reassessment. Subjective Date of service: 09/19/17 Interval history: The backup pacemaker rate has been reduced and it appears the need for further backup pacing. Objective Vital Signs Temp Pulse Resp BP BP Pulse Ox 09/19/17 07:39 97.9 F 09/19/17 06:11 70 12 105/76 100 09/19/17 06:00 70 10 L 105/76 100 09/19/17 05:51 70 12 110/77 100 09/19/17 05:41 70 12 110/77 100 09/19/17 05:31 70 13 110/77 100 09/19/17 05:21 70 10 L 110/77 100 09/19/17 05:11 70 13 110/77 100 09/19/17 05:00 70 10 L 110/77 100 09/19/17 04:51 70 14 108/74 100 09/19/17 04:41 70 13 108/74 100 09/19/17 04:31 73 11 L 108/74 100 09/19/17 04:20 70 16 118/75 99 09/19/17 04:11 70 15 108/74 100 09/19/17 04:00 70 14 108/74 99 09/19/17 03:51 70 15 131/87 98 09/19/17 03:42 97.4 F L 09/19/17 03:41 70 14 131/87 99 09/19/17 03:31 70 15 131/87 100 09/19/17 03:21 70 14 131/87 100 09/19/17 03:11 70 14 131/87 100 09/19/17 03:00 70 13 131/87 100 09/19/17 02:51 70 9 L 115/74 100 09/19/17 02:41 70 13 115/74 100 09/19/17 02:31 70 14 115/74 100 09/19/17 02:21 70 15 115/74 100 09/19/17 02:11 70 14 115/74 100 09/19/17 02:01 70 12 115/74 100 04/16/18 01:51 70 11 L 118/75 100 /16/18 01:41 70 13 118/75 100 16/18 01:31 70 13 118/75 100 18 01:21 70 13 118/75 100 16/18 01:10 70 22 118/75 100 16/18 01:00 70 13 118/75 100 16/18 00:51 70 13 125/83 100 1618 00:41 70 15 125/83 100 1618 00:31 70 15 125/83 100 1618 00:21 70 17 125/83 100 16/18 00:11 70 16 125/83 100 18 00:00 70 14 125/83 100 09/18/17 23:51 70 13 121/79 100 18 23:41 70 14 121/79 100 18 23:35 98.1 F 09/18/17 23:31 70 14 121/79 100 09/18/17 23:21 70 12 121/79 100 18 23:13 70 14 121/79 100 09/18/17 23:11 70 15 121/79 100 18 23:00 70 15 121/79 100 09/18/17 22:51 70 14 118/81 100 18 22:41 70 15 118/81 100 18 22:31 73 13 118/81 100 18 22:21 70 14 118/81 100 09/18/17 22:11 70 16 118/81 100 18 22:00 74 13 118/81 100 18 21:51 70 17 126/84 100 09/18/17 21:41 70 15 117/76 100 18 21:30 70 22 117/76 99 18 21:21 70 15 107/72 100 18 21:11 70 15 125/85 100 18 21:00 70 21 125/85 100 09/18/17 20:51 70 30 H 126/78 99 18 20:41 70 16 134/87 98 18 20:30 70 13 134/87 100 18 20:24 100 09/18/17 20:21 70 13 130/87 100 09/18/17 20:11 70 10 L 131/82 100 09/18/17 20:00 97.9 F 70 14 131/82 100 09/18/17 19:51 70 15 126/84 100 09/18/17 19:41 70 14 145/86 100 09/18/17 19:30 70 14 145/86 100 09/18/17 19:21 70 13 134/77 100 09/18/17 19:11 70 15 117/84 100 09/18/17 19:00 70 15 117/84 100 09/18/17 18:50 70 13 166/92 100 09/18/17 18:45 97 09/18/17 18:39 78 106/50 09/18/17 18:38 79 92/46 09/18/17 17:45 76 22 102/38 100 09/18/17 17:30 84 98/40 09/18/17 17:17 100/44 09/18/17 16:45 79 64/40 09/18/17 16:43 22 100 09/18/17 16:30 56/37 09/18/17 16:15 73/40 09/18/17 16:00 100/46 09/18/17 15:58 29 L 100/40 100 09/18/17 15:30 19 74/40 100 09/18/17 15:15 20 80/45 09/18/17 15:00 96.7 F L 29 L 20 90/40 100 - Physical Examination General: No Apparent Distress HEENT: Positive: PERRL Cardiac: Positive: Other (paced) Lungs: Positive: Decreased Breath Sounds Neuro: Positive: Grossly Intact Extremities: Present: Other (right femoral TVP). Absent: edema - Labs and Meds Cardiac Enzymes 09/18/17 09/19/17 Range/Units 16:00 04:50 AST 13 15 (5-40) units/L Coagulation 09/18/17 Range/Units 16:00 PT 14.2 (12.2-14.9) Sec. INR 1.05 (0.87-1.13) APTT 21.2 L (24.2-36.6) Sec. Lipids 09/18/17 Range/Units 16:00 Triglycerides 130 (2-149) mg/dL Cholesterol 105 (50-199) mg/dL HDL Cholesterol 26 L (40-59) mg/dL Cholesterol/HDL Ratio 4.03 % CBC 09/18/17 09/19/17 Range/Units 16:00 04:50 WBC 11.2 H 13.6 H (4.5-11.0) K/mm3 RBC 3.72 3.56 L (3.65-5.03) M/mm3 Hgb 10.9 L 10.6 L (11.8-15.2) gm/dl Hct 33.9 L 31.2 L (35.5-45.6) % Plt Count 459 H 422 (140-440) K/mm3 Lymph # 1.3 1.6 (1.2-5.4) K/mm3 [place] # 1.0 H 1.5 H (0.0-0.8) K/mm3 Eos # 0.1 0.1 (0.0-0.4) K/mm3 Baso # 0.1 0.1 (0.0-0.1) K/mm3 Comprehensive Metabolic Panel 09/18/17 09/18/17 09/19/17 Range/Units 16:00 19:50 04:50 Sodium 133 L 129 L 131 L (137-145) mmol/L Potassium 6.1 H* 5.0 4.8 (3.6-5.0) mmol/L Chloride 99.6 97.1 L 97.0 L (98-107) mmol/L Carbon Dioxide 20 L 20 L 23 (22-30) mmol/L BUN 47 H 46 H 40 H (9-20) mg/dL Creatinine 3.2 H 2.8 H 2.0 H (0.8-1.5) mg/dL Glucose 155 H 193 H 118 H (75-100) mg/dL Calcium 9.2 8.8 8.9 (8.4-10.2) mg/dL AST 13 15 (5-40) units/L ALT 21 19 (7-56) units/L Alkaline Phosphatase 70 69 (35-129) units/L Total Protein 6.9 6.6 (6.3-8.2) g/dL Albumin 3.3 L 3.2 L (3.9-5) g/dL - Imaging and Cardiology EKG: report reviewed (initial EKG complete heart block with heart rate of 20/m)
[2017-09-19] MEDS: HEPARIN SUB-Q SCH ×2 (16:05→21:28)
--- NOTE | 2017-09-19 18:37 | Consultation ---
History of Present Illness Consult date: 09/19/17 Consult reason: syncope History of present illness: 67 yo man with h/o severe aortic insufficiency and cardiomyopathy s/p recent bioprosthetic aortic valve replacement. He noticed profound fatigue yesterday and subsequently had episode of syncope. EMS was called and he was noted to be in complete heart block with ventricular escape rhythm in the 20s. He was trans -cutaneously paced and brought to [facility] where he underwent emergent trans-venous pacemaker insertion. He was also noted to have hyperkalemia and acute on chronic renal failure. Hyperkalemia has now resolved and renal function has improved. Upon my evaluation, he currently feels much better and has no current cardiac complaints. His cardiac rhythm is consistent with ventricular paced rhythm at 70 bpm. Underlying rhythm appears to be complete heart block with no intrinsic ventricular rhythm down to 30 bpm. Echocardiogram today reveals markedly depressed EF of 15%. Of note, he has underlying cardiomyopathy and has been on GDMT for over 3 months. Past History Past Medical History: other (Aortic insufficiency, CMP) Past Surgical History: valve replacement Social history: alcohol abuse (~ 2 shots of liquor daily), full code. denies: smoking, prescription drug abuse, IV drug use Family history: other (No pulm issues reported) Medications and Allergies Allergies Allergy/AdvReac Type Severity Reaction Status Date / Time No Known Allergies Allergy Unverified 09/18/17 16:32 Active Meds: Active Medications Acetaminophen (Tylenol) 650 mg PO Q4H PRN PRN Reason: Pain MILD(1-3)/Fever >100.5/GUERRA Sodium Chloride 1 ml/ (Vancomycin HCl 1,000 mg) 0 ml IR ONCE NR Stop: 09/20/17 23:59 Famotidine (Pepcid) 20 mg IV QDAY E[facility] Last Admin: 09/19/17 08:59 Dose: 20 mg Heparin Sodium (Porcine) (Heparin) 5,000 unit SUB-Q Q8HR EDA Last Admin: 09/19/17 16:05 Dose: 5,000 unit Hydromorphone HCl (Dilaudid) 1 mg IV Q3H PRN PRN Reason: Pain , Severe (7-10) Last Admin: 09/19/17 05:00 Dose: 1 mg Dextrose/Sodium Chloride (D5ns) 1,000 mls @ 100 mls/hr IV DIRECT EDA Metoclopramide HCl (Reglan) 10 mg IV Q6H PRN PRN Reason: Nausea And Vomiting Morphine Sulfate (Morphine) 2 mg IV Q4H PRN PRN Reason: Pain, Moderate (4-6) Ondansetron HCl (Zofran) 4 mg IV Q8H PRN PRN Reason: Nausea And Vomiting Oxycodone/Acetaminophen (Percocet 5/325) 1 tab PO Q6H PRN PRN Reason: Pain, Moderate (4-6) Sodium Chloride (Sodium Chloride Flush Syringe 10 Ml) 10 ml IV BID EDA Last Admin: 09/19/17 08:59 Dose: 10 ml Sodium Chloride (Sodium Chloride Flush Syringe 10 Ml) 10 ml IV PRN PRN PRN Reason: LINE FLUSH Zolpidem Tartrate (Ambien) 5 mg PO QHS PRN PRN Reason: Insomnia Physical Examination Vital Signs Temp Pulse Resp BP Pulse Ox 96.7 F L 29 L 20 90/40 100 09/18/17 15:00 09/18/17 15:00 09/18/17 15:00 09/18/17 15:00 09/18/17 15:00 General appearance: no acute distress Neck: Positive: neck supple Cardiac: Positive: Reg Rate and Rhythm, Systolic Murmur (II/ HSM at apex.) Lungs: Positive: clear to auscultation Neuro: Positive: Grossly Intact Abdomen: Positive: Soft, Active Bowel Sounds Extremities: Absent: edema Results 09/19/17 04:50 09/19/17 04:50 Cardiac Enzymes 09/19/17 Range/Units 04:50 AST 15 (5-40) units/L CBC 09/19/17 Range/Units 04:50 WBC 13.6 H (4.5-11.0) K/mm3 RBC 3.56 L (3.65-5.03) M/mm3 Hgb 10.6 L (11.8-15.2) gm/dl Hct 31.2 L (35.5-45.6) % Plt Count 422 (140-440) K/mm3 Lymph # 1.6 (1.2-5.4) K/mm3 [place] # 1.5 H (0.0-0.8) K/mm3 Eos # 0.1 (0.0-0.4) K/mm3 Baso # 0.1 (0.0-0.1) K/mm3 Comprehensive Metabolic Panel 09/18/17 09/19/17 Range/Units 19:50 04:50 Sodium 129 L 131 L (137-145) mmol/L Potassium 5.0 4.8 (3.6-5.0) mmol/L Chloride 97.1 L 97.0 L (98-107) mmol/L Carbon Dioxide 20 L 23 (22-30) mmol/L BUN 46 H 40 H (9-20) mg/dL Creatinine 2.8 H 2.0 H (0.8-1.5) mg/dL Glucose 193 H 118 H (75-100) mg/dL Calcium 8.8 8.9 (8.4-10.2) mg/dL AST 15 (5-40) units/L ALT 19 (7-56) units/L Alkaline Phosphatase 69 (35-129) units/L Total Protein 6.6 (6.3-8.2) g/dL Albumin 3.2 L (3.9-5) g/dL Assessment and Plan 1. Complete heart block leading to syncope s/p TVP 2. Severe dilated cardiomyopathy with EF 15% based on echocardiogram 3. Aortic Insufficiency s/p recent bioprosthetic AVR 4. Htn 5. Acute on chronic renal failure: Improving 6. Hyperkalemia: Corrected. Recommend: Implant BiVentricular ICD ([employer]ING WHEEL-D) as he has complete heart block and significant underlying cardiomyopathy. Extensively discussed with patient and family. They want to proceed and will plan for tomorrow morning.
--- NOTE | 2017-09-19 18:46 | Progress Note ---
Assessment and Plan Assessment and plan: 67-year-old AA male felt very weak and passed out at home. When the EMS arrived they found the patient to be in a heart rate of 20/m. Patient was placed on temporary transvenous pacemaker. After wearing the external pacemaker HR went upto 80. Patient recently had a Aortic valve replacement about 3 weeks ago at [facility]. Patient was also hypotensive. No history of coronary artery disease. No diaphoresis. Patient is a high potassium of 6.1 and creatinine of 3.2 on admission. A femoral approach for placement of percutaneous transvenous pacemaker was done. AP surgeon was consulted due to complete heart block for evaluation. Complete heart block Severe dilated cardiomyopathy with ejection fraction of 15% Acute kidney injury suffered with chronic kidney injury likely secondary to vasomotor nephropathy Hypertension Hyperkalemia resolved Aortic insufficiency status post bioprosthetic aortic valve replacement Plan Continue supportive care hyperkalemia has resolved renal function as on the downward trend. Plan for biventricular ICD in a.m. family agreeable to treatment as last patient. Continue renal management and nephrology input noted. Continued blood pressure control DVT and GI prophylaxis Plan of care discussed with patient and family in detail. History Interval history: Patient seen and examined this morning are resting comfortably continues with transcutaneous pacing. Denies any chest pain nausea vomiting reports improvement in prior Noted dizziness. Patient was admitted following syncope was found to have complete heart block. Hospitalist Physical - Physical exam Narrative exam: VITAL SIGNS: Reviewed. GENERAL: The patient appeared well nourished and normally developed. Vital signs as documented. HEAD: No signs of head trauma. EYES: Pupils are equal. Extraocular motions intact. EARS: Hearing grossly intact. MOUTH: Oropharynx is normal. NECK: No adenopathy, no JVD. CHEST: Chest with clear breath sounds bilaterally. No wheezes, rales, or rhonchi. CARDIAC: Pace rhythm. VASCULAR: No Edema. Peripheral pulses normal and equal in all extremities. ABDOMEN: Soft, without detectable tenderness. No sign of distention. No rebound or guarding, and no masses palpated. Bowel Sounds normal. MUSCULOSKELETAL: Good range of motion of all major joints. Extremities without clubbing, cyanosis or edema. NEUROLOGIC EXAM: Alert and oriented x 3. No focal sensory or strength deficits. Speech normal. Follows commands. PSYCHIATRIC: Mood normal. SKIN: No rash or lesions. - Constitutional Vitals: Temp Pulse Resp BP Pulse Ox 98.2 F 70 14 98/53 100 09/19/17 16:00 09/19/17 17:00 09/19/17 17:00 09/19/17 17:00 09/19/17 17:00 General appearance: Present: no acute distress Results - Labs CBC & Chem 7: 09/19/17 04:50 09/19/17 04:50 Labs: Laboratory Last Values WBC 13.6 K/mm3 (4.5-11.0) H 09/19/17 04:50 RBC 3.56 M/mm3 (3.65-5.03) L 09/19/17 04:50 Hgb 10.6 gm/dl (11.8-15.2) L 09/19/17 04:50 Hct 31.2 % (35.5-45.6) L 09/19/17 04:50 MCV 88 fl (84-94) 09/19/17 04:50 MCH 30 pg (28-32) 09/19/17 04:50 MCHC 34 % (32-34) 09/19/17 04:50 RDW 13.1 % (13.2-15.2) L 09/19/17 04:50 Plt Count 422 K/mm3 (140-440) 09/19/17 04:50 Lymph % (Auto) 12.0 % (13.4-35.0) L 09/19/17 04:50 [place] % (Auto) 11.1 % (0.0-7.3) H 09/19/17 04:50 Eos % (Auto) 0.4 % (0.0-4.3) 09/19/17 04:50 Baso % (Auto) 0.5 % (0.0-1.8) 09/19/17 04:50 Lymph # 1.6 K/mm3 (1.2-5.4) 09/19/17 04:50 [place] # 1.5 K/mm3 (0.0-0.8) H 09/19/17 04:50 Eos # 0.1 K/mm3 (0.0-0.4) 09/19/17 04:50 Baso # 0.1 K/mm3 (0.0-0.1) 09/19/17 04:50 Seg Neutrophils % 76.0 % (40.0-70.0) H 09/19/17 04:50 Seg Neutrophils # 10.3 K/mm3 (1.8-7.7) H 09/19/17 04:50 PT 14.2 Sec. (12.2-14.9) 09/18/17 16:00 INR 1.05 (0.87-1.13) 09/18/17 16:00 APTT 21.2 Sec. (24.2-36.6) L 09/18/17 16:00 POC ABG pH 7.335 (7.35-7.45) L 09/18/17 16:53 POC ABG pCO2 34.5 (35-45) L 09/18/17 16:53 POC ABG pO2 294 (80-105) H 09/18/17 16:53 POC ABG HCO3 18.4 09/18/17 16:53 POC ABG Total CO2 19 09/18/17 16:53 POC ABG O2 Sat 100 09/18/17 16:53 POC ABG Base Excess -7 09/18/17 16:53 VBG pH 7.242 (7.320-7.420) L 09/18/17 Unknown VBG pO2 35.1 (25.0-47.0) 09/18/17 Unknown FiO2 100 % 09/18/17 16:53 Sodium 131 mmol/L (137-145) L 09/19/17 04:50 Potassium 4.8 mmol/L (3.6-5.0) 09/19/17 04:50 Chloride 97.0 mmol/L (98-107) L 09/19/17 04:50 Carbon Dioxide 23 mmol/L (22-30) 09/19/17 04:50 Anion Gap 16 mmol/L 09/19/17 04:50 BUN 40 mg/dL (9-20) H 09/19/17 04:50 Creatinine 2.0 mg/dL (0.8-1.5) H 09/19/17 04:50 Estimated GFR 41 ml/min 09/19/17 04:50 BUN/Creatinine Ratio 20 % 09/19/17 04:50 Glucose 118 mg/dL (75-100) H 09/19/17 04:50 Hemoglobin A1c 6.0 % (4-6) 09/18/17 19:10 Osmolality 299 Mosm/kg 09/19/17 00:54 Lactic Acid 1.40 mmol/L (0.7-2.0) 09/18/17 17:12 Uric Acid 7.4 mg/dL (3.5-7.6) 09/18/17 23:40 Calcium 8.9 mg/dL (8.4-10.2) 09/19/17 04:50 Total Bilirubin 0.50 mg/dL (0.1-1.2) 09/19/17 04:50 AST 15 units/L (5-40) 09/19/17 04:50 ALT 19 units/L (7-56) 09/19/17 04:50 Alkaline Phosphatase 69 units/L (35-129) 09/19/17 04:50 Troponin T 0.047 ng/mL (0.00-0.029) H D 09/19/17 13:09 Total Protein 6.6 g/dL (6.3-8.2) 09/19/17 04:50 Albumin 3.2 g/dL (3.9-5) L 09/19/17 04:50 Albumin/Globulin Ratio 0.9 % 09/19/17 04:50 Triglycerides 130 mg/dL (2-149) 09/18/17 16:00 Cholesterol 105 mg/dL (50-199) 09/18/17 16:00 LDL Cholesterol Direct 60 mg/dL (50-130) 09/18/17 16:00 HDL Cholesterol 26 mg/dL (40-59) L 09/18/17 16:00 Cholesterol/HDL Ratio 4.03 % 09/18/17 16:00 TSH 0.535 mlU/mL (0.270-4.200) 09/19/17 13:09 Urine Color Yellow (Yellow) 09/18/17 Unknown Urine Turbidity Clear (Clear) 09/18/17 Unknown Urine pH 5.0 (5.0-7.0) 09/18/17 Unknown Ur Specific Onward 1.010 (1.003-1.030) 09/18/17 Unknown Urine Protein <15 mg/dl mg/dL (Negative) 09/18/17 Unknown Urine Glucose (UA) 50 mg/dL (Negative) 09/18/17 Unknown Urine Ketones Neg mg/dL (Negative) 09/18/17 Unknown Urine Blood Sm (Negative) 09/18/17 Unknown Urine Nitrite Neg (Negative) 09/18/17 Unknown Urine Bilirubin Neg (Negative) 09/18/17 Unknown Urine Urobilinogen < 2.0 mg/dL (<2.0) 09/18/17 Unknown Ur Leukocyte Esterase Tr (Negative) 09/18/17 Unknown Urine WBC (Auto) 1.0 /HPF (0.0-6.0) 09/18/17 Unknown Urine RBC (Auto) < 1.0 /HPF (0.0-6.0) 09/18/17 Unknown U Epithel Cells (Auto) 1.0 /HPF (0-13.0) 09/18/17 15:45 Urine Bacteria (Auto) 1+ /HPF (Negative) 09/18/17 Unknown Hyaline Casts 6 /LPF 09/18/17 15:45 Granular Casts 6 /LPF 09/18/17 15:45 Urine Mucus Few /HPF 09/18/17 Unknown Urine Creatinine 79.9 mg/dL (0.1-20.0) H 09/18/17 Unknown Urine Total Protein 15 mg/dL (5-11.8) H 09/18/17 Unknown - Imaging and Cardiology Chest x-ray: image reviewed (no acute pathology prosthetic aortic valve noted.)
[2017-09-19] MEDS ORDERED: D5NS 1,000 ML IV SCH (22:48)
[2017-09-19] MEDS: AMBIEN PO PRN (23:18)
[2017-09-20 06:00] LABS: BUN/Creatinine Ratio 17; Blood Urea Nitrogen 22 mg/dL (9-20); Calcium 8.8 mg/dL (8.4-10.2); Hemolysis Index 0
[2017-09-20] MEDS ORDERED: NACL 0.9% 1 ML, VANCOMYCIN VIAL 1,000 MG IR NR (06:00)
[2017-09-20] MEDS ORDERED: NACL 0.9% 500 ML 500 ML ONE (06:08)
[2017-09-20] MEDS ORDERED: NACL 0.9% 500 ML IR ONE (06:13)
[2017-09-20] MEDS ORDERED: ANCEF/STERILE WATER 2 GM/20 ML 2 GM/20 ML SYRINGE IV ONE (06:14)
[2017-09-20] MEDS ORDERED: HEPARIN/NS 5000 UNIT/500ML(CATH LAB) 500 ML IR ONE (06:30)
[2017-09-20] MEDS ORDERED: NACL 0.9% 1000 ML 0 ML ONE (06:30)
[2017-09-20] MEDS: SUBLIMAZE ONE ×5 (06:50→07:39)
[2017-09-20] MEDS: VERSED IV ONE ×4 (06:50→07:39)
[2017-09-20] MEDS: XYLOCAINE 1% 20 mL ONE ×2 (06:51→07:02)
[2017-09-20] MEDS: MARCAINE 0.5% 30 ML INFILTRATI ONE ×2 (06:52→07:02)
--- NOTE | 2017-09-20 08:47 | Event Note ---
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 Temporary femoral trans venous pacemaker was removed. Recommend: 1. Recommend prior outpatient therapy including beta chelsea 2. Avoid heparin/lovenox for 24 hours 3. Outpatient f/u with primary telephone operator chief at [place], Dr. Trevizo, within 1 -2 weeks - I have discussed case with him. 4. Prescribe short course of pain medications at time of hospital discharge. Jonathon Vee MD
[2017-09-20] MEDS: PEPCID PO SCH (09:30)
[2017-09-20] MEDS: SODIUM CHLORIDE FLUSH SYRINGE 10 ML IV SCH ×2 (09:31→23:05)
[2017-09-20] MEDS: HEPARIN SUB-Q SCH (09:33)
--- NOTE | 2017-09-20 09:33 | Progress Note ---
Subjective Interval history: Patient was seen today for follow-up on multiple renal related issues Patient denies any complaints, cough, chest pain, pressure, shortness of breath Status post, pacemaker placement Events over 24 hours vitals, labs, intake and output. Medications were reviewed Allergies: Reviewed Past medical history: Reviewed Social history: Reviewed Family history: Reviewed Current medications: Reviewed Physical examination Vitals: Reviewed Gen.: No acute distress, alert HEENT: Oral mucosa moist. No icterus Neck: Supple, no JVD Chest: Clear to auscultation anteriorly and posteriorly. No wheezes Heart: Regular rate and rhythm, S1, S2 heard, no S3, S4 Abdomen: Soft, nontender. No renal bruit. No CVA tenderness. No suprapubic fullness Extremity: Dry skin, less than 1+ edema Skin: Dry skin. No purpuric rash Assessment and plan IFTIKHAR better , made aware about kidney function will follwo with [facility] hyperkalemia better , monitor and follow S/p pacemaker placement follwoed by cardiology HTN ok Hyponatremia resolved Will follow with [facility] All related issues were discussed with patient and simple [place], patient does exhibit good understanding of kidney related problems Labs were explained and simple [place] Renal prognosis is guarded at this time We'll continue to follow and make recommendation from renal standpoint Objective - Vital Signs Vital signs: Vital Signs - 12hr 09/19/17 09/19/17 09/19/17 21:45 22:00 22:15 Temperature Pulse Rate 70 70 70 Pulse Rate [ 70 Apical] Respiratory 17 13 16 Rate Blood Pressure 108/82 107/77 116/80 O2 Sat by Pulse 98 99 99 Oximetry 09/19/17 09/19/17 09/19/17 22:30 22:45 23:00 Temperature Pulse Rate 70 70 70 Pulse Rate [ Apical] Respiratory 14 12 17 Rate Blood Pressure 116/75 112/78 109/80 O2 Sat by Pulse 100 100 98 Oximetry 09/19/17 09/19/17 09/19/17 23:15 23:31 23:40 Temperature Pulse Rate 70 70 70 Pulse Rate [ 70 Apical] Respiratory 12 13 Rate Blood Pressure 105/84 105/84 O2 Sat by Pulse 100 100 98 Oximetry 09/19/17 09/20/17 09/20/17 23:45 00:00 00:09 Temperature 98.1 F Pulse Rate 70 70 70 Pulse Rate [ Apical] Respiratory 16 15 15 Rate Blood Pressure 105/84 102/76 102/76 O2 Sat by Pulse 100 98 98 Oximetry 09/20/17 09/20/17 09/20/17 00:15 00:31 00:40 Temperature Pulse Rate 70 70 Pulse Rate [ 70 Apical] Respiratory 16 22 Rate Blood Pressure 102/76 102/76 O2 Sat by Pulse 98 100 98 Oximetry 09/20/17 09/20/17 09/20/17 00:45 01:00 01:15 Temperature Pulse Rate 70 70 70 Pulse Rate [ Apical] Respiratory 15 13 16 Rate Blood Pressure 102/76 105/68 105/68 O2 Sat by Pulse 94 97 94 Oximetry 09/20/17 09/20/17 09/20/17 01:31 01:40 01:45 Temperature Pulse Rate 70 70 Pulse Rate [ 70 Apical] Respiratory 12 16 Rate Blood Pressure 105/68 105/68 O2 Sat by Pulse 99 98 99 Oximetry 09/20/17 09/20/17 09/20/17 02:00 02:15 02:31 Temperature Pulse Rate 70 70 70 Pulse Rate [ Apical] Respiratory 14 15 12 Rate Blood Pressure 92/63 92/63 92/63 O2 Sat by Pulse 98 98 99 Oximetry 09/20/17 09/20/17 09/20/17 02:44 02:45 03:01 Temperature Pulse Rate 70 70 Pulse Rate [ 70 Apical] Respiratory 16 12 Rate Blood Pressure 92/63 92/63 O2 Sat by Pulse 98 99 100 Oximetry 09/20/17 09/20/17 09/20/17 03:15 03:31 03:45 Temperature Pulse Rate 70 70 70 Pulse Rate [ Apical] Respiratory 14 16 16 Rate Blood Pressure 92/69 92/69 92/69 O2 Sat by Pulse 100 100 99 Oximetry 09/20/17 09/20/17 09/20/17 04:00 04:11 04:15 Temperature 98.3 F Pulse Rate 70 70 70 Pulse Rate [ 70 Apical] Respiratory 9 L 14 Rate Blood Pressure 100/69 100/69 O2 Sat by Pulse 100 98 98 Oximetry 09/20/1709/20/09/20/17 04:31 04:45 05:01 Temperature Pulse Rate 70 70 70 Pulse Rate [ Apical] Respiratory 14 16 13 Rate Blood Pressure 100/69 100/69 102/79 O2 Sat by Pulse 100 97 100 Oximetry 09/20/17 09/20/17 09/20/17 05:15 05:31 05:45 Temperature Pulse Rate 70 70 Pulse Rate [ 70 Apical] Respiratory 21 13 Rate Blood Pressure 102/79 102/79 O2 Sat by Pulse 100 98 Oximetry - Lab 09/19/17 04:50 09/20/17 05:42 Most recent lab results Calcium 8.8 mg/dL (8.4-10.2) 09/20/17 05:42 Urine Creatinine 79.9 mg/dL (0.1-20.0) H 09/18/17 Unknown Urine Total Protein 15 mg/dL (5-11.8) H 09/18/17 Unknown
--- NOTE | 2017-09-20 10:21 | XRay Report ---
AP CHEST: HISTORY: Pacemaker postop Previous CABG changes. A multilead pacemaker device has been inserted since 09/18/17. There is decreased cardiomegaly and pulmonary venous congestion. The lungs are clear. No pneumothorax. IMPRESSION: Pacemaker placement. No pneumothorax.
--- NOTE | 2017-09-20 12:07 | Progress Note ---
Assessment and Plan Imp: 1. Syncope 2. Complete heart block 3. AR s/p recent open AVR with pericardial tissue valve 4. IFTIKHAR on CKD, baseline of 1.3 in [facility] system 5. Dilated CMP, worse; intra-op GORDO showed LVEF of 45-50% 08/2017 Rec: 1. Stable pulm-haynes on RA; can go home from our standpoint Plan of care reviewed w/ patient, he understands/agrees Subjective Date of service: 09/20/17 Principal diagnosis: SOB Interval history: s/p AICD/PPM. No chest pain, SOB, cough, new complaints. On RA. Off pressors. Active Medications Acetaminophen (Tylenol) 650 mg PO Q4H PRN PRN Reason: Pain MILD(1-3)/Fever >100.5/GUERRA Sodium Chloride 1 ml/ (Vancomycin HCl 1,000 mg) 0 ml IR ONCE NR Stop: 09/20/17 23:59 Famotidine (Pepcid) 20 mg PO DAILY [facility] Last Admin: 09/20/17 09:30 Dose: 20 mg Hydromorphone HCl (Dilaudid) 1 mg IV Q3H PRN PRN Reason: Pain , Severe (7-10) Last Admin: 09/19/17 05:00 Dose: 1 mg Cefazolin Sodium 1 gm/ Sodium (Chloride) 20 mls @ 2 mls/min IV Q8HR [facility] Stop: 09/20/17 22:09 Metoclopramide HCl (Reglan) 10 mg IV Q6H PRN PRN Reason: Nausea And Vomiting Morphine Sulfate (Morphine) 2 mg IV Q4H PRN PRN Reason: Pain, Moderate (4-6) Ondansetron HCl (Zofran) 4 mg IV Q8H PRN PRN Reason: Nausea And Vomiting Oxycodone/Acetaminophen (Percocet 5/325) 1 tab PO Q6H PRN PRN Reason: Pain, Moderate (4-6) Sodium Chloride (Sodium Chloride Flush Syringe 10 Ml) 10 ml IV BID [facility] Last Admin: 09/20/17 09:31 Dose: 10 ml Sodium Chloride (Sodium Chloride Flush Syringe 10 Ml) 10 ml IV PRN PRN PRN Reason: LINE FLUSH Last Admin: 09/19/17 23:37 Dose: 10 ml Zolpidem Tartrate (Ambien) 5 mg PO QHS PRN PRN Reason: Insomnia Last Admin: 09/19/17 23:18 Dose: 5 mg Objective Vital Signs - 12hr 09/20/17 09/20/17 09/20/17 00:09 00:15 00:31 Temperature Pulse Rate 70 70 70 Pulse Rate [ Apical] Respiratory 15 16 22 Rate Blood Pressure 102/76 102/76 102/76 O2 Sat by Pulse 98 98 100 Oximetry 09/20/17 09/20/17 09/20/17 00:40 00:45 01:00 Temperature Pulse Rate 70 70 Pulse Rate [ 70 Apical] Respiratory 15 13 Rate Blood Pressure 102/76 105/68 O2 Sat by Pulse 98 94 97 Oximetry 09/20/17 09/20/17 09/20/17 01:15 01:31 01:40 Temperature Pulse Rate 70 70 Pulse Rate [ 70 Apical] Respiratory 16 12 Rate Blood Pressure 105/68 105/68 O2 Sat by Pulse 94 99 98 Oximetry 09/20/17 09/20/17 09/20/17 01:45 02:00 02:15 Temperature Pulse Rate 70 70 70 Pulse Rate [ Apical] Respiratory 16 14 15 Rate Blood Pressure 105/68 92/63 92/63 O2 Sat by Pulse 99 98 98 Oximetry 09/20/17 09/20/17 09/20/17 02:31 02:44 02:45 Temperature Pulse Rate 70 70 Pulse Rate [ 70 Apical] Respiratory 12 16 Rate Blood Pressure 92/63 92/63 O2 Sat by Pulse 99 98 99 Oximetry 09/20/17 09/20/17 09/20/17 03:01 03:15 03:31 Temperature Pulse Rate 70 70 70 Pulse Rate [ Apical] Respiratory 12 14 16 Rate Blood Pressure 92/63 92/69 92/69 O2 Sat by Pulse 100 100 100 Oximetry 09/20/17 09/20/17 09/20/17 03:45 04:00 04:11 Temperature 98.3 F Pulse Rate 70 70 70 Pulse Rate [ 70 Apical] Respiratory 16 9 L Rate Blood Pressure 92/69 100/69 O2 Sat by Pulse 99 100 98 Oximetry 09/20/17 09/20/17 09/20/17 04:15 04:31 04:45 Temperature Pulse Rate 70 70 70 Pulse Rate [ Apical] Respiratory 14 14 16 Rate Blood Pressure 100/69 100/69 100/69 O2 Sat by Pulse 98 100 97 Oximetry 09/20/17 09/20/17 09/20/17 05:01 05:15 05:31 Temperature Pulse Rate 70 70 70 Pulse Rate [ Apical] Respiratory 13 21 13 Rate Blood Pressure 102/79 102/79 102/79 O2 Sat by Pulse 100 100 Oximetry 09/20/17 09/20/17 09/20/17 05:45 09:13 09:15 Temperature Pulse Rate 80 74 Pulse Rate [ 70 Apical] Respiratory 14 Rate Blood Pressure 102/79 104/77 O2 Sat by Pulse 98 100 Oximetry 09/20/17 09/20/17 09/20/17 09:30 09:37 09:45 Temperature Pulse Rate 72 71 Pulse Rate [ 71 Apical] Respiratory 11 L 12 14 Rate Blood Pressure 96/70 102/79 O2 Sat by Pulse 98 99 99 Oximetry 09/20/17 09/20/17 09/20/17 10:00 10:01 10:15 Temperature Pulse Rate 71 74 64 Pulse Rate [ Apical] Respiratory 12 18 Rate Blood Pressure 111/83 111/83 O2 Sat by Pulse 100 99 Oximetry 09/20/17 09/20/17 09/20/17 10:30 10:45 11:00 Temperature Pulse Rate 65 64 65 Pulse Rate [ Apical] Respiratory 16 15 11 L Rate Blood Pressure 88/65 88/65 111/71 O2 Sat by Pulse 99 100 100 Oximetry 09/20/17 11:54 Temperature Pulse Rate Pulse Rate [ 63 Apical] Respiratory 14 Rate Blood Pressure O2 Sat by Pulse 99 Oximetry Constitutional: no acute distress, alert, other (obese) Eyes: non-icteric ENT: oropharynx moist Neck: supple Effort: normal Ascultation: Bilateral: clear Cardiovascular: regular rate and rhythm (no mrg) Gastrointestinal: normoactive bowel sounds, soft, non-tender, non-distended Integumentary: normal Extremities: no cyanosis, no edema, pink and warm Neurologic: normal mental status, non-focal exam, pupils equal and round Psychiatric: mood appropriate, affect normal CBC and BMP: 09/19/17 04:50 09/20/17 05:42 ABG, PT/INR, D-dimer: ABG POC ABG pH 7.335 (7.35-7.45) L 09/18/17 16:53 POC ABG pCO2 34.5 (35-45) L 09/18/17 16:53 POC ABG pO2 294 (80-105) H 09/18/17 16:53 POC ABG HCO3 18.4 09/18/17 16:53 POC ABG Total CO2 19 09/18/17 16:53 POC ABG O2 Sat 100 09/18/17 16:53 PT/INR, D-dimer PT 14.2 Sec. (12.2-14.9) 09/18/17 16:00 INR 1.05 (0.87-1.13) 09/18/17 16:00 Abnormal lab findings: Abnormal Labs 09/18/17 09/18/17 09/18/17 16:00 16:00 16:00 WBC 11.2 H RBC Hgb 10.9 L Hct 33.9 L RDW Plt Count 459 H Lymph % (Auto) 11.7 L Cameron % (Auto) 8.7 H Cameron # 1.0 H Seg Neutrophils % 78.1 H Seg Neutrophils # 8.7 H APTT 21.2 L POC ABG pH POC ABG pCO2 POC ABG pO2 VBG pH Sodium 133 L Potassium 6.1 H* Chloride Carbon Dioxide 20 L BUN 47 H Creatinine 3.2 H Glucose 155 H Lactic Acid Troponin T 0.104 H* Albumin 3.3 L HDL Cholesterol 26 L Urine Creatinine Urine Total Protein 09/18/17 09/18/17 09/18/17 16:00 16:53 19:50 WBC RBC Hgb Hct RDW Plt Count Lymph % (Auto) Cameron % (Auto) Cameron # Seg Neutrophils % Seg Neutrophils # APTT POC ABG pH 7.335 L POC ABG pCO2 34.5 L POC ABG pO2 294 H VBG pH Sodium 129 L Potassium Chloride 97.1 L Carbon Dioxide 20 L BUN 46 H Creatinine 2.8 H Glucose 193 H Lactic Acid 2.40 H* Troponin T Albumin HDL Cholesterol Urine Creatinine Urine Total Protein 09/18/17 09/18/17 09/18/17 19:54 Unknown Unknown WBC RBC Hgb Hct RDW Plt Count Lymph % (Auto) Cameron % (Auto) Cameron # Seg Neutrophils % Seg Neutrophils # APTT POC ABG pH POC ABG pCO2 POC ABG pO2 VBG pH 7.242 L Sodium Potassium Chloride Carbon Dioxide BUN Creatinine Glucose Lactic Acid Troponin T 0.101 H* Albumin HDL Cholesterol Urine Creatinine 79.9 H Urine Total Protein 15 H 09/19/17 09/19/17 09/19/17 04:50 04:50 04:50 WBC 13.6 H RBC 3.56 L Hgb 10.6 L Hct 31.2 L RDW 13.1 L Plt Count Lymph % (Auto) 12.0 L Cameron % (Auto) 11.1 H Cameron # 1.5 H Seg Neutrophils % 76.0 H Seg Neutrophils # 10.3 H APTT POC ABG pH POC ABG pCO2 POC ABG pO2 VBG pH Sodium 131 L Potassium Chloride 97.0 L Carbon Dioxide BUN 40 H Creatinine 2.0 H Glucose 118 H Lactic Acid Troponin T 0.076 H D Albumin 3.2 L HDL Cholesterol Urine Creatinine Urine Total Protein 09/19/17 09/20/17 13:09 05:42 WBC RBC Hgb Hct RDW Plt Count Lymph % (Auto) Cameron % (Auto) Cameron # Seg Neutrophils % Seg Neutrophils # APTT POC ABG pH POC ABG pCO2 POC ABG pO2 VBG pH Sodium Potassium Chloride Carbon Dioxide BUN 22 H Creatinine Glucose 101 H Lactic Acid Troponin T 0.047 H D Albumin HDL Cholesterol Urine Creatinine Urine Total Protein Chest x-ray: image reviewed (clear lungs s/p AICD)
[2017-09-20] MEDS ORDERED: ANCEF/NS 1 GM/50 ML 1 GM/50 ML BAG IV SCH (14:00)
[2017-09-20] MEDS: ceFAZolin 1 GM in NACL 0.9% 20 ML IV SCH (14:44)
--- NOTE | 2017-09-20 21:27 | Progress Note ---
Assessment and Plan Assessment and plan: 67-year-old AA male felt very weak and passed out at home. When the EMS arrived they found the patient to be in a heart rate of 20/m. Patient was placed on temporary transvenous pacemaker. After wearing the external pacemaker HR went upto 80. Patient recently had a Aortic valve replacement about 3 weeks ago at [facility]. Patient was also hypotensive. No history of coronary artery disease. No diaphoresis. Patient is a high potassium of 6.1 and creatinine of 3.2 on admission. A femoral approach for placement of percutaneous transvenous pacemaker was done. AP surgeon was consulted due to complete heart block for evaluation. Complete heart block Severe dilated cardiomyopathy with ejection fraction of 15% Acute kidney injury suffered with chronic kidney injury likely secondary to vasomotor nephropathy Hypertension Hyperkalemia resolved Aortic insufficiency status post bioprosthetic aortic valve replacement Plan Continue supportive care hyperkalemia has resolved renal function as on the downward trend. Plan for biventricular ICD in a.m. family agreeable to treatment as last patient. Continue renal management and nephrology input noted. Continued blood pressure control DVT and GI prophylaxis Plan of care discussed with patient and family in detail. Transfer to [facility] if remains stable History Interval history: Patient seen and examined this morning are resting comfortably continues with transcutaneous pacing. Denies any chest pain nausea vomiting reports improvement in prior Noted dizziness. Patient was admitted following syncope was found to have complete heart block. Hospitalist Physical - Physical exam Narrative exam: VITAL SIGNS: Reviewed. GENERAL: The patient appeared well nourished and normally developed. Vital signs as documented. HEAD: No signs of head trauma. EYES: Pupils are equal. Extraocular motions intact. EARS: Hearing grossly intact. MOUTH: Oropharynx is normal. NECK: No adenopathy, no JVD. CHEST: Chest with clear breath sounds bilaterally. No wheezes, rales, or rhonchi. CARDIAC: Pace rhythm. VASCULAR: No Edema. Peripheral pulses normal and equal in all extremities. ABDOMEN: Soft, without detectable tenderness. No sign of distention. No rebound or guarding, and no masses palpated. Bowel Sounds normal. MUSCULOSKELETAL: Good range of motion of all major joints. Extremities without clubbing, cyanosis or edema. NEUROLOGIC EXAM: Alert and oriented x 3. No focal sensory or strength deficits. Speech normal. Follows commands. PSYCHIATRIC: Mood normal. SKIN: No rash or lesions. - Constitutional Vitals: Temp Pulse Resp BP Pulse Ox 98.9 F 69 12 113/86 97 09/20/17 19:49 09/20/17 20:16 09/20/17 20:16 09/20/17 20:16 09/20/17 20:33 General appearance: Present: no acute distress Results - Labs CBC & Chem 7: 09/19/17 04:50 09/20/17 05:42 Labs: Laboratory Last Values WBC 13.6 K/mm3 (4.5-11.0) H 09/19/17 04:50 RBC 3.56 M/mm3 (3.65-5.03) L 09/19/17 04:50 Hgb 10.6 gm/dl (11.8-15.2) L 09/19/17 04:50 Hct 31.2 % (35.5-45.6) L 09/19/17 04:50 MCV 88 fl (84-94) 09/19/17 04:50 MCH 30 pg (28-32) 09/19/17 04:50 MCHC 34 % (32-34) 09/19/17 04:50 RDW 13.1 % (13.2-15.2) L 09/19/17 04:50 Plt Count 422 K/mm3 (140-440) 09/19/17 04:50 Lymph % (Auto) 12.0 % (13.4-35.0) L 09/19/17 04:50 [place] % (Auto) 11.1 % (0.0-7.3) H 09/19/17 04:50 Eos % (Auto) 0.4 % (0.0-4.3) 09/19/17 04:50 Baso % (Auto) 0.5 % (0.0-1.8) 09/19/17 04:50 Lymph # 1.6 K/mm3 (1.2-5.4) 09/19/17 04:50 [place] # 1.5 K/mm3 (0.0-0.8) H 09/19/17 04:50 Eos # 0.1 K/mm3 (0.0-0.4) 09/19/17 04:50 Baso # 0.1 K/mm3 (0.0-0.1) 09/19/17 04:50 Seg Neutrophils % 76.0 % (40.0-70.0) H 09/19/17 04:50 Seg Neutrophils # 10.3 K/mm3 (1.8-7.7) H 09/19/17 04:50 PT 14.2 Sec. (12.2-14.9) 09/18/17 16:00 INR 1.05 (0.87-1.13) 09/18/17 16:00 APTT 21.2 Sec. (24.2-36.6) L 09/18/17 16:00 POC ABG pH 7.335 (7.35-7.45) L 09/18/17 16:53 POC ABG pCO2 34.5 (35-45) L 09/18/17 16:53 POC ABG pO2 294 (80-105) H 09/18/17 16:53 POC ABG HCO3 18.4 09/18/17 16:53 POC ABG Total CO2 19 09/18/17 16:53 POC ABG O2 Sat 100 09/18/17 16:53 POC ABG Base Excess -7 09/18/17 16:53 VBG pH 7.242 (7.320-7.420) L 09/18/17 Unknown VBG pO2 35.1 (25.0-47.0) 09/18/17 Unknown FiO2 100 % 09/18/17 16:53 Sodium 138 mmol/L (137-145) D 09/20/17 05:42 Potassium 4.9 mmol/L (3.6-5.0) 09/20/17 05:42 Chloride 100.8 mmol/L (98-107) 09/20/17 05:42 Carbon Dioxide 26 mmol/L (22-30) 09/20/17 05:42 Anion Gap 16 mmol/L 09/20/17 05:42 BUN 22 mg/dL (9-20) H 09/20/17 05:42 Creatinine 1.3 mg/dL (0.8-1.5) 09/20/17 05:42 Estimated GFR > 60 ml/min 09/20/17 05:42 BUN/Creatinine Ratio 17 % 09/20/17 05:42 Glucose 101 mg/dL (75-100) H 09/20/17 05:42 Hemoglobin A1c 6.0 % (4-6) 09/18/17 19:10 Osmolality 299 Mosm/kg 09/19/17 00:54 Lactic Acid 1.40 mmol/L (0.7-2.0) 09/18/17 17:12 Uric Acid 7.4 mg/dL (3.5-7.6) 09/18/17 23:40 Calcium 8.8 mg/dL (8.4-10.2) 09/20/17 05:42 Total Bilirubin 0.50 mg/dL (0.1-1.2) 09/19/17 04:50 AST 15 units/L (5-40) 09/19/17 04:50 ALT 19 units/L (7-56) 09/19/17 04:50 Alkaline Phosphatase 69 units/L (35-129) 09/19/17 04:50 Troponin T 0.047 ng/mL (0.00-0.029) H D 09/19/17 13:09 Total Protein 6.6 g/dL (6.3-8.2) 09/19/17 04:50 Albumin 3.2 g/dL (3.9-5) L 09/19/17 04:50 Albumin/Globulin Ratio 0.9 % 09/19/17 04:50 Triglycerides 130 mg/dL (2-149) 09/18/17 16:00 Cholesterol 105 mg/dL (50-199) 09/18/17 16:00 LDL Cholesterol Direct 60 mg/dL (50-130) 09/18/17 16:00 HDL Cholesterol 26 mg/dL (40-59) L 09/18/17 16:00 Cholesterol/HDL Ratio 4.03 % 09/18/17 16:00 TSH 0.535 mlU/mL (0.270-4.200) 09/19/17 13:09 Urine Color Yellow (Yellow) 09/18/17 Unknown Urine Turbidity Clear (Clear) 09/18/17 Unknown Urine pH 5.0 (5.0-7.0) 09/18/17 Unknown Ur Specific [place] 1.010 (1.003-1.030) 09/18/17 Unknown Urine Protein <15 mg/dl mg/dL (Negative) 09/18/17 Unknown Urine Glucose (UA) 50 mg/dL (Negative) 09/18/17 Unknown Urine Ketones Neg mg/dL (Negative) 09/18/17 Unknown Urine Blood Sm (Negative) 09/18/17 Unknown Urine Nitrite Neg (Negative) 09/18/17 Unknown Urine Bilirubin Neg (Negative) 09/18/17 Unknown Urine Urobilinogen < 2.0 mg/dL (<2.0) 09/18/17 Unknown Ur Leukocyte Esterase Tr (Negative) 09/18/17 Unknown Urine WBC (Auto) 1.0 /HPF (0.0-6.0) 09/18/17 Unknown Urine RBC (Auto) < 1.0 /HPF (0.0-6.0) 09/18/17 Unknown U Epithel Cells (Auto) 1.0 /HPF (0-13.0) 09/18/17 15:45 Urine Bacteria (Auto) 1+ /HPF (Negative) 09/18/17 Unknown Hyaline Casts 6 /LPF 09/18/17 15:45 Granular Casts 6 /LPF 09/18/17 15:45 Urine Mucus Few /HPF 09/18/17 Unknown Urine Creatinine 79.9 mg/dL (0.1-20.0) H 09/18/17 Unknown Urine Total Protein 15 mg/dL (5-11.8) H 09/18/17 Unknown
[2017-09-21] MEDS: AMBIEN PO PRN (00:17)
[2017-09-21] MEDS: ceFAZolin 1 GM in NACL 0.9% 20 ML IV SCH (00:18)
--- NOTE | 2017-09-21 09:08 | Progress Note ---
Assessment and Plan 1. Complete heart block leading to syncope s/p TVP and AMORTIZATION CLERK-D 2. Severe dilated cardiomyopathy with EF 15% based on echocardiogram 3. Aortic Insufficiency s/p recent bioprosthetic AVR 4. Htn 5. Acute on chronic renal failure: Improving 6. Hyperkalemia: Corrected. 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 May go home cardiac [facility] Subjective Date of service: 09/21/17 Principal diagnosis: SOB Interval history: Doing well PM site - clean, no drainage Objective Vital Signs Temp Pulse Pulse Pulse Resp Resp BP 09/21/17 08:25 75 09/21/17 04:47 98.5 F 71 121/82 09/21/17 01:00 122 H 24 59/24 09/21/17 00:50 115 H 36 H 111/59 09/21/17 00:40 122 H 39 H 111/59 09/21/17 00:30 127 H 46 H 111/59 09/21/17 00:20 115 H 48 H 92/39 09/21/17 00:10 119 H 39 H 102/44 09/21/17 00:04 20 09/21/17 00:00 120 H 39 H 102/44 09/20/17 23:50 119 H 42 H 121/72 09/20/17 23:40 120 H 45 H 113/86 09/20/17 23:39 78 09/20/17 23:38 99.2 F 79 20 108/78 09/20/17 23:30 99.2 F 82 20 09/20/17 23:05 20 09/20/17 23:04 20 09/20/17 22:02 70 18 09/20/17 22:00 98.4 F 70 18 09/20/17 21:43 70 09/20/17 21:39 98.4 F 70 18 118/74 09/20/17 21:10 69 17 113/86 09/20/17 21:00 69 18 113/86 09/20/17 20:50 70 12 113/86 09/20/17 20:40 68 17 113/86 09/20/17 20:33 09/20/17 20:30 68 20 113/86 09/20/17 20:20 68 16 113/86 04/17/18 20:16 69 12 113/86 04/17/18 20:06 70 12 113/86 04/17/18 20:00 70 69 20 100/68 04/17/18 19:49 98.9 F 04/17/18 19:46 72 16 100/68 04/17/18 19:30 70 15 100/68 04/17/18 19:16 70 14 100/68 04/17/18 19:00 85 13 113/86 04/17/18 18:46 73 17 100/68 04/17/18 18:30 70 16 100/68 04/17/18 18:16 70 16 100/68 04/17/18 18:00 70 15 100/68 04/17/18 17:46 69 17 98/71 04/17/18 17:30 68 15 98/71 04/17/18 17:16 68 15 98/71 04/17/18 17:00 68 16 98/71 /17/18 16:46 70 14 106/71 /17/18 16:30 70 14 106/71 04/17/18 16:16 66 15 106/71 /17/18 16:00 98.4 F 67 63 14 106/71 04/17/18 15:46 67 15 110/73 /17/18 15:41 98.4 F 17/18 15:30 68 15 110/73 04/17/18 15:16 66 15 110/73 /17/18 15:00 67 14 110/73 /17/18 14:46 68 14 104/69 /17/18 14:30 68 13 104/69 /17/18 14:16 66 14 104/69 04/17/18 14:00 65 13 104/69 /17/18 13:46 67 16 /17/18 13:31 68 13 101/71 04/17/18 13:15 67 13 101/71 04/17/18 13:00 68 14 101/71 04/17/18 12:45 66 12 100/70 04/17/18 12:30 68 18 100/70 04/17/18 12:16 98.0 F 17/18 12:15 66 15 100/70 04/17/18 12:00 98.0 F 67 11 L 100/70 04/17/18 11:54 63 14 09/20/17 11:45 63 11 L 109/78 09/20/17 11:30 62 14 109/78 09/20/17 11:15 66 14 111/71 09/20/17 11:00 65 11 L 111/71 09/20/17 10:45 64 15 88/65 09/20/17 10:30 65 16 88/65 09/20/17 10:15 64 18 111/83 09/20/17 10:01 74 12 111/83 09/20/17 10:00 71 09/20/17 09:45 71 14 102/79 09/20/17 09:37 71 12 09/20/17 09:30 72 11 L 96/70 09/20/17 09:15 74 14 104/77 09/20/17 09:13 80 102/79 BP Pulse Ox 09/21/17 08:25 09/21/17 04:47 99 09/21/17 01:00 100 09/21/17 00:50 95 09/21/17 00:40 96 09/21/17 00:30 100 09/21/17 00:20 100 09/21/17 00:10 98 09/21/17 00:04 09/21/17 00:00 97 09/20/17 23:50 97 09/20/17 23:40 09/20/17 23:39 100 09/20/17 23:38 99 09/20/17 23:30 108/78 99 09/20/17 23:05 09/20/17 23:04 09/20/17 22:02 99 09/20/17 22:00 118/74 99 09/20/17 21:43 09/20/17 21:39 100 09/20/17 21:10 100 09/20/17 21:00 100 09/20/17 20:50 99 09/20/17 20:40 100 09/20/17 20:33 97 09/20/17 20:30 100 18 20:20 100 18 20:16 100 09/20/17 20:06 100 09/20/17 20:00 100 09/20/17 19:49 09/20/17 19:46 100 09/20/17 19:30 100 09/20/17 19:16 100 09/20/17 19:00 99 18 18:46 100 18 18:30 100 09/20/17 18:16 98 09/20/17 18:00 100 09/20/17 17:46 100 18 17:30 100 09/20/17 17:16 100 09/20/17 17:00 100 18 16:46 100 18 16:30 98 18 16:16 100 09/20/17 16:00 100 18 15:46 100 18 15:41 09/20/17 15:30 100 09/20/17 15:16 99 09/20/17 15:00 100 09/20/17 14:46 100 09/20/17 14:30 100 09/20/17 14:16 100 09/20/17 14:00 98 09/20/17 13:46 100 09/20/17 13:31 100 09/20/17 13:15 100 09/20/17 13:00 99 09/20/17 12:45 99 09/20/17 12:30 99 09/20/17 12:16 09/20/17 12:15 99 09/20/17 12:00 99 09/20/17 11:54 99 09/20/17 11:45 99 09/20/17 11:30 100 09/20/17 11:15 100 09/20/17 11:00 100 09/20/17 10:45 100 09/20/17 10:30 99 09/20/17 10:15 99 09/20/17 10:01 100 09/20/17 10:00 09/20/17 09:45 99 09/20/17 09:37 99 09/20/17 09:30 98 09/20/17 09:15 100 09/20/17 09:13 - Physical Examination General: No Apparent Distress HEENT: Positive: PERRL Neck: Positive: neck supple Cardiac: Positive: Reg Rate and Rhythm Lungs: Positive: Normal Exam Neuro: Positive: Grossly Intact Abdomen: Positive: Soft, Active Bowel Sounds Skin: Positive: Clear Extremities: Absent: edema - Imaging and Cardiology EKG: report reviewed (initial EKG complete heart block with heart rate of 20/m)
--- NOTE | 2017-09-21 09:11 | Progress Note ---
Subjective Principal diagnosis: SOB Interval history: Patient was seen today for follow-up on multiple renal related issues feeling much better wants to go home Events over 24 hours vitals, labs, intake and output. Medications were reviewed Allergies: Reviewed Past medical history: Reviewed Social history: Reviewed Family history: Reviewed Current medications: Reviewed Physical examination Vitals: Reviewed Gen.: No acute distress, alert HEENT: Oral mucosa moist. No icterus Neck: Supple, no JVD Chest: Clear to auscultation anteriorly and posteriorly. No wheezes Heart: Regular rate and rhythm, S1, S2 heard, no S3, S4 Abdomen: Soft, nontender. No renal bruit. No CVA tenderness. No suprapubic fullness Extremity: Dry skin, less than 1+ edema Skin: Dry skin. No purpuric rash Assessment and plan Acute kidney injury with underlying history of chronic kidney disease: Patient does follow-up with [facility] renal function has normalized potassium has been normal Status post pacemaker placement Dietary counseling and education was done and would not give him any formal face inhibitors or angiotensin receptor [place] Patient was advised to follow-up with [facility] All renal related issues were addressed with patient We will sign off the case please call if needed Objective - Vital Signs Vital signs: Vital Signs - 12hr 09/20/17 09/20/17 09/20/17 21:39 21:43 22:00 Temperature 98.4 F 98.4 F Pulse Rate 70 70 70 Pulse Rate [ From Monitor] Respiratory 18 18 Rate Respiratory Rate [Left Shoulder] Blood Pressure 118/74 Blood Pressure 118/74 [Right] O2 Sat by Pulse 100 99 Oximetry 09/20/17 09/20/17 09/20/17 22:02 23:04 23:05 Temperature Pulse Rate Pulse Rate [ 70 From Monitor] Respiratory 18 20 Rate Respiratory 20 Rate [Left Shoulder] Blood Pressure Blood Pressure [Right] O2 Sat by Pulse 99 Oximetry 09/20/17 09/20/17 09/20/17 23:30 23:38 23:39 Temperature 99.2 F 99.2 F Pulse Rate 82 79 78 Pulse Rate [ From Monitor] Respiratory 20 20 Rate Respiratory Rate [Left Shoulder] Blood Pressure 108/78 Blood Pressure 108/78 [Right] O2 Sat by Pulse 99 99 100 Oximetry 09/20/17 09/20/17 09/21/17 23:40 23:50 00:00 Temperature Pulse Rate 120 H 119 H 120 H Pulse Rate [ From Monitor] Respiratory 45 H 42 H 39 H Rate Respiratory Rate [Left Shoulder] Blood Pressure 113/86 121/72 102/44 Blood Pressure [Right] O2 Sat by Pulse 97 97 Oximetry 09/21/17 09/21/17 09/21/17 00:04 00:10 00:20 Temperature Pulse Rate 119 H 115 H Pulse Rate [ From Monitor] Respiratory 20 39 H 48 H Rate Respiratory Rate [Left Shoulder] Blood Pressure 102/44 92/39 Blood Pressure [Right] O2 Sat by Pulse 98 100 Oximetry 09/21/17 09/21/17 09/21/17 00:30 00:40 00:50 Temperature Pulse Rate 127 H 122 H 115 H Pulse Rate [ From Monitor] Respiratory 46 H 39 H 36 H Rate Respiratory Rate [Left Shoulder] Blood Pressure 111/59 111/59 111/59 Blood Pressure [Right] O2 Sat by Pulse 100 96 95 Oximetry 09/21/17 09/21/17 09/21/17 01:00 04:47 08:25 Temperature 98.5 F Pulse Rate 122 H 71 75 Pulse Rate [ From Monitor] Respiratory 24 Rate Respiratory Rate [Left Shoulder] Blood Pressure 59/24 121/82 Blood Pressure [Right] O2 Sat by Pulse 100 99 Oximetry - Lab 09/19/17 04:50 09/20/17 05:42 Most recent lab results Calcium 8.8 mg/dL (8.4-10.2) 09/20/17 05:42 Urine Creatinine 79.9 mg/dL (0.1-20.0) H 09/18/17 Unknown Urine Total Protein 15 mg/dL (5-11.8) H 09/18/17 Unknown
--- NOTE | 2017-09-21 10:03 | Cardiac Catherization Report ---
TEMPORARY PACEMAKER PROCEDURE REPORT REASON FOR PROCEDURE: The patient is a 67-year-old man who underwent bioprosthetic aortic valve replacement a month ago at [facility]. He presented to the hospital today with syncope, and EKG consistent with complete heart block. He was placed on an external pacemaker and transferred to [facility]. We were asked to perform emergency transvenous pacemaker placement. It will be noted on his routine laboratory values that the patient had a potassium of 6.1 in the setting of renal failure with a creatinine of 3.2. He was also on amiodarone and carvedilol therapy. Antihyperkalemic therapy was administered in the Emergency Room, but the patient remains bradycardic with significant heart block. On temporary cessation of external pacemaker, we found that he was asystolic, with only P waves and no QRS complexes. DESCRIPTION OF PROCEDURE: The patient was prepped and draped in a sterile fashion emergency protocol. The attempts at cannulation of the right internal jugular vein were unsuccessful. We turned our attention to the left femoral vein. Successful cannulation of the left femoral vein was followed by placement of a 6-Yemeni sheath. We then inserted without difficulty a 5-Yemeni transvenous pacemaker and advanced to the right ventricular apex. A successful pacing was established, with a threshold less than 0.2 millivolts. The patient's external pacemaker was then discontinued, and he was transferred to the CCU in stable but guarded condition. CONCLUSION: Successful placement of a temporary transvenous pacemaker via the left femoral vein. JOB# [id number] CONNOR/MOHINI
--- NOTE | 2017-09-21 10:24 | Discharge Summary ---
Providers - Providers Date of Admission: 09/18/17 16:27 Attending physician: PAULETTE GARIBAY MD 09/18/17 18:26 Consult to Dietitian/Nutrition [CONS] Routine Physician Instructions: Reason For Exam: Reason for Consult: Malnutrition Consult to Physician [CONS] Routine Comment: Consulting Provider: CLYDE SERRANO Physician Instructions: Reason For Exam: symptomatic bradycardia 09/18/17 19:38 Consult to Physician [CONS] Routine Comment: Consulting Provider: CHARLES HAIDER Physician Instructions: Reason For Exam: IFTIKHAR 09/19/17 07:25 Consult to Physician [CONS] Routine Comment: Consulting Provider: SHERIN RODRIGUEZ Physician Instructions: Reason For Exam: ICU Hospitalization Condition: Stable Disposition: DC-01 TO HOME OR SELFCARE Time spent for discharge: 35 mins Core Measure Documentation - Palliative Care Palliative Care/ Comfort Measures: Not Applicable - Core Measures Any of the following diagnoses?: none - VTE Discharge Requirements Deep Vein Thrombosis/Pulmonary Embolism Present on Admission: No Exam - Physical Exam Narrative exam: VITAL SIGNS: Reviewed. GENERAL: The patient appeared well nourished and normally developed. Vital signs as documented. HEAD: No signs of head trauma. EYES: Pupils are equal. Extraocular motions intact. EARS: Hearing grossly intact. MOUTH: Oropharynx is normal. NECK: No adenopathy, no JVD. CHEST: Chest with clear breath sounds bilaterally. No wheezes, rales, or rhonchi. CARDIAC: Pace rhythm. VASCULAR: No Edema. Peripheral pulses normal and equal in all extremities. ABDOMEN: Soft, without detectable tenderness. No sign of distention. No rebound or guarding, and no masses palpated. Bowel Sounds normal. MUSCULOSKELETAL: Good range of motion of all major joints. Extremities without clubbing, cyanosis or edema. NEUROLOGIC EXAM: Alert and oriented x 3. No focal sensory or strength deficits. Speech normal. Follows commands. PSYCHIATRIC: Mood normal. SKIN: No rash or lesions. - Constitutional Vitals: Temp Pulse Resp BP Pulse Ox 98.5 F 75 24 121/82 99 09/21/17 04:47 09/21/17 08:25 09/21/17 01:00 09/21/17 04:47 09/21/17 04:47 Plan Activity: advance as tolerated, fall precautions Diet: low fat Special Instructions: record daily weights, record daily BP diary Additional Instructions: Repeat BMP to evaulate renal function in 1 week. Discuss with PCP AND OR MOLD CHIPPER Follow up with: FABIENNE BRUNO [Other] - 3-5 Days LUCRECIA LAMBERT MD [Staff Physician] - 7 Days MICHAEL CUMMINS MD [Staff Physician] - 7 Days NAKIA GORE MD [Staff Physician] - 7 Days Prescriptions: Famotidine [Pepcid] 20 mg PO DAILY #30 tablet Lisinopril [Zestril TAB] 2.5 mg PO QDAY #30 tablet Metoprolol Xl [Metoprolol SUCCINATE ER TAB] 25 mg PO QDAY #30 tablet oxyCODONE /ACETAMINOPHEN [Percocet 5/325 mg] 1 tab PO Q6H PRN #14 tablet PRN Reason: Pain, Moderate (4-6)
[2017-09-21] MEDS: TOPROL XL PO SCH ×2 (10:39→10:42)
[2017-09-21] MEDS: PEPCID PO SCH (10:39)
--- NOTE | 2017-09-21 10:39 | Progress Note ---
Assessment and Plan Imp: 1. Syncope 2. Complete heart block 3. AR s/p recent open AVR with pericardial tissue valve 4. IFTIKHAR on CKD, baseline of 1.3 in [facility] [place] [facility] 5. Dilated CMP, worse; intra-op GORDO showed LVEF of 45-50% 08/2017 Rec: 1. Stable pulm-haynes on RA; can go home from our standpoint Plan of care reviewed w/ patient, he understands/agrees Subjective Date of service: 09/21/17 Principal diagnosis: SOB Interval history: s/p AICD/PPM. No chest pain, SOB, cough, new complaints. On RA. Active Medications Acetaminophen (Tylenol) 650 mg PO Q4H PRN PRN Reason: Pain MILD(1-3)/Fever >100.5/GUERRA Famotidine (Pepcid) 20 mg PO DAILY [facility] Last Admin: 09/20/17 09:30 Dose: 20 mg Hydromorphone HCl (Dilaudid) 1 mg IV Q3H PRN PRN Reason: Pain , Severe (7-10) Last Admin: 09/19/17 05:00 Dose: 1 mg Lisinopril (Zestril) 2.5 mg PO QDAY [facility] Metoclopramide HCl (Reglan) 10 mg IV Q6H PRN PRN Reason: Nausea And Vomiting Metoprolol Succinate (Toprol Xl) 25 mg PO QDAY [facility] Morphine Sulfate (Morphine) 2 mg IV Q4H PRN PRN Reason: Pain, Moderate (4-6) Ondansetron HCl (Zofran) 4 mg IV Q8H PRN PRN Reason: Nausea And Vomiting Oxycodone/Acetaminophen (Percocet 5/325) 1 tab PO Q6H PRN PRN Reason: Pain, Moderate (4-6) Last Admin: 09/20/17 23:04 Dose: 1 tab Sodium Chloride (Sodium Chloride Flush Syringe 10 Ml) 10 ml IV BID [facility] Last Admin: 09/20/17 23:05 Dose: 10 ml Sodium Chloride (Sodium Chloride Flush Syringe 10 Ml) 10 ml IV PRN PRN PRN Reason: LINE FLUSH Last Admin: 09/19/17 23:37 Dose: 10 ml Zolpidem Tartrate (Ambien) 5 mg PO QHS PRN PRN Reason: Insomnia Last Admin: 09/21/17 00:17 Dose: 5 mg Objective Vital Signs - 12hr 09/20/17 09/20/17 09/20/17 23:04 23:05 23:30 Temperature 99.2 F Pulse Rate 82 Respiratory 20 20 Rate Respiratory 20 Rate [Left Shoulder] Blood Pressure Blood Pressure 108/78 [Right] O2 Sat by Pulse 99 Oximetry 09/20/17 09/20/17 09/20/17 23:38 23:39 23:40 Temperature 99.2 F Pulse Rate 79 78 120 H Respiratory 20 45 H Rate Respiratory Rate [Left Shoulder] Blood Pressure 108/78 113/86 Blood Pressure [Right] O2 Sat by Pulse 99 100 Oximetry 09/20/17 09/21/17 09/21/17 23:50 00:00 00:04 Temperature Pulse Rate 119 H 120 H Respiratory 42 H 39 H 20 Rate Respiratory Rate [Left Shoulder] Blood Pressure 121/72 102/44 Blood Pressure [Right] O2 Sat by Pulse 97 97 Oximetry 09/21/17 09/21/17 09/21/17 00:10 00:20 00:30 Temperature Pulse Rate 119 H 115 H 127 H Respiratory 39 H 48 H 46 H Rate Respiratory Rate [Left Shoulder] Blood Pressure 102/44 92/39 111/59 Blood Pressure [Right] O2 Sat by Pulse 98 100 100 Oximetry 09/21/17 09/21/17 09/21/17 00:40 00:50 01:00 Temperature Pulse Rate 122 H 115 H 122 H Respiratory 39 H 36 H 24 Rate Respiratory Rate [Left Shoulder] Blood Pressure 111/59 111/59 59/24 Blood Pressure [Right] O2 Sat by Pulse 96 95 100 Oximetry 09/21/17 09/21/17 04:47 08:25 Temperature 98.5 F Pulse Rate 71 75 Respiratory Rate Respiratory Rate [Left Shoulder] Blood Pressure 121/82 Blood Pressure [Right] O2 Sat by Pulse 99 Oximetry Constitutional: no acute distress, alert, other (obese) Eyes: non-icteric ENT: oropharynx moist Neck: supple Effort: normal Ascultation: Bilateral: clear Cardiovascular: regular rate and rhythm (no mrg) Gastrointestinal: normoactive bowel sounds, soft, non-tender, non-distended Integumentary: normal Extremities: no cyanosis, no edema, pink and warm Neurologic: normal mental status, non-focal exam, pupils equal and round Psychiatric: mood appropriate, affect normal CBC and BMP: 09/19/17 04:50 09/20/17 05:42 ABG, PT/INR, D-dimer: ABG POC ABG pH 7.335 (7.35-7.45) L 09/18/17 16:53 POC ABG pCO2 34.5 (35-45) L 09/18/17 16:53 POC ABG pO2 294 (80-105) H 09/18/17 16:53 POC ABG HCO3 18.4 09/18/17 16:53 POC ABG Total CO2 19 09/18/17 16:53 POC ABG O2 Sat 100 09/18/17 16:53 PT/INR, D-dimer PT 14.2 Sec. (12.2-14.9) 09/18/17 16:00 INR 1.05 (0.87-1.13) 09/18/17 16:00 Abnormal lab findings: Abnormal Labs 09/18/17 09/18/17 09/18/17 16:00 16:00 16:00 WBC 11.2 H RBC Hgb 10.9 L Hct 33.9 L RDW Plt Count 459 H Lymph % (Auto) 11.7 L [place] % (Auto) 8.7 H [place] # 1.0 H Seg Neutrophils % 78.1 H Seg Neutrophils # 8.7 H APTT 21.2 L POC ABG pH POC ABG pCO2 POC ABG pO2 VBG pH Sodium 133 L Potassium 6.1 H* Chloride Carbon Dioxide 20 L BUN 47 H Creatinine 3.2 H Glucose 155 H Lactic Acid Troponin T 0.104 H* Albumin 3.3 L HDL Cholesterol 26 L Urine Creatinine Urine Total Protein 09/18/17 09/18/17 09/18/17 16:00 16:53 19:50 WBC RBC Hgb Hct RDW Plt Count Lymph % (Auto) [place] % (Auto) [place] # Seg Neutrophils % Seg Neutrophils # APTT POC ABG pH 7.335 L POC ABG pCO2 34.5 L POC ABG pO2 294 H VBG pH Sodium 129 L Potassium Chloride 97.1 L Carbon Dioxide 20 L BUN 46 H Creatinine 2.8 H Glucose 193 H Lactic Acid 2.40 H* Troponin T Albumin HDL Cholesterol Urine Creatinine Urine Total Protein 09/18/17 09/18/17 09/18/17 19:54 Unknown Unknown WBC RBC Hgb Hct RDW Plt Count Lymph % (Auto) [place] % (Auto) [place] # Seg Neutrophils % Seg Neutrophils # APTT POC ABG pH POC ABG pCO2 POC ABG pO2 VBG pH 7.242 L Sodium Potassium Chloride Carbon Dioxide BUN Creatinine Glucose Lactic Acid Troponin T 0.101 H* Albumin HDL Cholesterol Urine Creatinine 79.9 H Urine Total Protein 15 H 09/19/17 09/19/17 09/19/17 04:50 04:50 04:50 WBC 13.6 H RBC 3.56 L Hgb 10.6 L Hct 31.2 L RDW 13.1 L Plt Count Lymph % (Auto) 12.0 L [place] % (Auto) 11.1 H [place] # 1.5 H Seg Neutrophils % 76.0 H Seg Neutrophils # 10.3 H APTT POC ABG pH POC ABG pCO2 POC ABG pO2 VBG pH Sodium 131 L Potassium Chloride 97.0 L Carbon Dioxide BUN 40 H Creatinine 2.0 H Glucose 118 H Lactic Acid Troponin T 0.076 H D Albumin 3.2 L HDL Cholesterol Urine Creatinine Urine Total Protein 09/19/17 09/20/17 13:09 05:42 WBC RBC Hgb Hct RDW Plt Count Lymph % (Auto) [place] % (Auto) [place] # Seg Neutrophils % Seg Neutrophils # APTT POC ABG pH POC ABG pCO2 POC ABG pO2 VBG pH Sodium Potassium Chloride Carbon Dioxide BUN 22 H Creatinine Glucose 101 H Lactic Acid Troponin T 0.047 H D Albumin HDL Cholesterol Urine Creatinine Urine Total Protein Chest x-ray: report reviewed, image reviewed
[2017-09-21] MEDS: ZESTRIL PO SCH ×2 (10:40→10:42)
[2017-09-21 12:48] VITALS: BP 117/82
[2017-09-21 21:34] LABS: Gamma Globulin 1.1 g/dL (0.8-1.7)
== END 2017-09-21 12:30 | disposition home or self-care (01) | DRG 227 ==
LOC: ED 14:36 → CC1 16:27 → 4A 09-20 21:46
PROVIDERS: ADMIT Internal Medicine; ATTEND Internal Medicine
PROC: 5A1223Z Performance of Cardiac Pacing, Continuous (ICD-10-PCS; 2017-09-18)
PROC: 4A033R1 Measurement of Arterial Saturation, Peripheral, Percutaneous Approach (ICD-10-PCS; 2017-09-18)
PROC: 0JH609Z Insertion of Cardiac Resynchronization Defibrillator Pulse Generator into Chest Subcutaneous Tissue and Fascia, Open Approach (ICD-10-PCS; principal; 2017-09-20)
PROC: 02HL3KZ Insertion of Defibrillator Lead into Left Ventricle, Percutaneous Approach (ICD-10-PCS; 2017-09-20)
PROC: 02HK3KZ Insertion of Defibrillator Lead into Right Ventricle, Percutaneous Approach (ICD-10-PCS; 2017-09-20)
PROC: 02H63KZ Insertion of Defibrillator Lead into Right Atrium, Percutaneous Approach (ICD-10-PCS; 2017-09-20)
PROC: 02PA3NZ Removal of Intracardiac Pacemaker from Heart, Percutaneous Approach (ICD-10-PCS; 2017-09-20)
DX: I44.2 Atrioventricular block, complete (principal); N17.9 Acute kidney failure, unspecified; E87.1 Hypo-osmolality and hyponatremia; I42.0 Dilated cardiomyopathy; I95.9 Hypotension, unspecified; E87.5 Hyperkalemia; Z95.2 Presence of prosthetic heart valve; N18.9 Chronic kidney disease, unspecified; D64.9 Anemia, unspecified; F10.10 Alcohol abuse, uncomplicated; I12.9 Hypertensive chronic kidney disease with stage 1 through stage 4 chronic kidney disease, or unspecified chronic kidney disease
CPT/HCPCS: 33210; 33225; 33249; 36415; 70450; 71045; 80048; 80053; 80061; 81001; 82140; 82570; 82803; 82805; 83036; 83930; 84156; 84165; 84443; 84484; 84550; 85025; 85610; 85730; 87040; 93005; 93010; 93306; 94760; 96365; 96366; 96368; 96375; C1769; C1781; C1882; C1892; C1894; C1895; C1898; C1900; J0461; J0610; J0690; J1170; J1644; J1815; J2060; J2250; J3010; J3370; J7030; J7040; J7042; J7070; Q9967